=== PATIENT | female | born 1970 | race Caucasian/White ===

== ENCOUNTER → 2016-12-08 | Outpatient (CLI) | payer BC ==
[2016-12-08 13:01] LABS: CH 30.9; CHCM 33.8; HCT 42.2 % (34.0-46.0); HDW 2.32; HGB 13.9 gm/dL (11.4-16.0); MCH 30.2 pg (25.0-35.0); MCV 91.7 fL (80.0-100.0); Mean Platelet Volume 7.5; RBC 4.61 m/uL (3.80-5.40); RDW 13.5 % (11.5-15.5); WBC 6.8 k/uL (3.8-10.6)
[2016-12-08 13:28] LABS: Rheumatoid Factor, Qnt <9 IU/mL (<12)
[2016-12-08 13:29] LABS: C Reactive Protein <5.0 mg/L (<10.0)
[2016-12-08 14:24] LABS: Erythrocyte Sedimentation Rate 11 mm/hr (0-20)
[2016-12-08 22:39] LABS: ANA w/Reflex to Titer POSITIVE (NEGATIVE)
[2016-12-09 08:45] LABS: HLA B27 NEGATIVE; HLA B27 Comment SEEBELOW
[2016-12-12 10:16] LABS: Lyme IgG/IgM 0.7 Index; Lyme IgG/IgM Interp NEGATIVE (NEGATIVE)
== END | disposition home or self-care (01) ==
LOC: LABWHC1 12:10
PROVIDERS: ATTEND Orthopaedic Surgery
DX: M19.072 Primary osteoarthritis, left ankle and foot (principal); M06.9 Rheumatoid arthritis, unspecified; Q66.7 Congenital pes cavus; G57.62 Lesion of plantar nerve, left lower limb
CPT/HCPCS: 36415; 84443; 85027; 85652; 86038; 86039; 86060; 86140; 86431; 86618; 86812

== ENCOUNTER → 2016-12-19 | Outpatient (CLI) | payer BC ==
--- NOTE | 2016-12-20 19:16 | HP ---
CHIEF COMPLAINT: The patient is here for her routine gynecologic exam and mammogram. HPI: This is a 46-year-old G4, P3-0-1-3 with an LMP of 2007. She is status post endometrial ablation and has had amenorrhea since then. She does have a history of dyspareunia. She states this has improved since I last saw her. She still uses Estrace vaginal cream periodically and this has been helpful. She states the discomfort with intercourse is improved when she can relax the pelvic floor muscles. She has experienced some discomfort with intercourse and occasional pelvic pains which seem to be cyclic. It seems to occur every month or so. She is not having periods so she does not know if it is related to her cycling hormones. PAST MEDICAL HISTORY: Hypothyroidism, elevated cholesterol and back and neck problems. MEDICATIONS: 1. Levothyroxine 75 mcg daily. 2. Valtrex generic 500 mg daily but she states she does not always use this. 3. Simvastatin 10 mg daily. 4. Estrace vaginal cream 1-2 gm twice weekly p.r.n. ALLERGIES: BIAXIN which caused a rash. 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 REVIEW OF SYSTEMS: She has gained about 3 pounds over the last year. She denies respiratory, cardiac or GI problems. SOCIAL HISTORY: She denies tobacco and drug use and has about 3 drinks per day during the summer but she tends to only drink alcohol on the weekends during the school year. 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 PHYSICAL EXAM: Blood pressure 120/78, height 5'0", weight 144 pounds, temperature 98.6, pulse 85. This is a well-developed, well-nourished white female who is alert and oriented x3, in no acute distress. HEENT: Within normal limits. NECK: Supple without mass or thyromegaly. CHEST AND LUNGS: Clear to auscultation. HEART: Regular rate and rhythm. BREASTS: Without mass or discharge. AXILLARY: Negative for adenopathy. BACK: Negative for CVA tenderness. ABDOMEN: Soft, nontender without palpable masses. PELVIC: Normal external genitalia. Cervix and vagina appear normal. There is no unusual discharge. There is no cervical motion tenderness. There is no evidence of prolapse. The uterus is mid position, nongravatized and nontender. There are no palpable adnexal masses or tenderness. With palpation to the posterior vagina, there is mild tenderness approximately 6 cm inside of the introitus on the right side. This is consistent with her previous exams. There is no discreet palpable mass. RECTOVAGINAL: Negative for mass or tenderness and is negative for occult blood. EXTREMITIES: Nontender. IMPRESSION: 1. 46-year-old female with history of dyspareunia and there is mild vaginal tenderness at the posterior aspect on the right side of the vagina. Differential diagnoses will include endometriosis, myofascial pelvic pain syndrome, possible ovarian cyst pains and possible levator ani spasms. Her symptoms seem somewhat improved from her previous visits. 2. History of genital herpes with no recent flare-ups, on suppressive therapy. PLAN: 1. Pap smear was deferred since she had a normal one last year. 2. Self breast examination was discussed. 3. A mammogram will be done today. 4. The patient would like prescriptions for her Valtrex and Estrace cream and these were given to the patient. 5. We discussed various options regarding her dyspareunia. If it is bothersome for her, I have recommended laparoscopic examination. She understands that she would need a referral for this. She will consider this and let me know if she would like to proceed with this. 6. We have also discussed possible physical therapy for possible myofascial pelvic pain syndrome or levator ani spasms. At this time she feels that her symptoms have improved enough where she would not want to do this at this time. 7. She will return in one year. SYED
--- NOTE | 2016-12-21 10:36 | MM ---
Reason for exam: screening (asymptomatic). Last mammogram was performed 1 year and 2 months ago. History: Benign right mammotome panel of the right breast, January 06, 2011. Benign right mammotome panel of the right breast, January 06, 2011. Took hormonal contraceptives for 4 years. Physical Findings: A clinical breast exam by your physician is recommended on an annual basis and results should be correlated with mammographic findings. MG 3D Screening Mammo W/Cad Bilateral CC and MLO view(s) were taken. XCCL view(s) were taken of the right breast. Prior study comparison: October 19, 2015, bilateral MG 3d screening mammo w/cad. July 15, 2014, bilateral MG diagnostic mammo w CAD ZOILA. June 25, 2013, CAD bilateral diagnostic mammogram. The breast tissue is heterogeneously dense. This may lower the sensitivity of mammography. Finding: There are typically benign calcifications in the lower inner quadrant of the right breast 3cm from nipple. New finding since October 19, 2015, July 15, 2014, and June 25, 2013. ASSESSMENT: Incomplete: need additional imaging evaluation, BI-RAD 0 RECOMMENDATION: Special view mammogram of the right breast. If lesion persists on supplemental views, image directed ultrasound is recommended. [facility] will attempt to contact patient to return for supplemental views and ultrasound if indicated.
== END | disposition home or self-care (01) ==
LOC: WWCWWP 08:40
PROVIDERS: ATTEND Obstetrics & Gynecology
DX: Z12.31 Encounter for screening mammogram for malignant neoplasm of breast (principal)
CPT/HCPCS: 77063; G0202

== ENCOUNTER → 2016-12-25 | Outpatient (CLI) | payer BC ==
--- NOTE | 2016-12-25 10:01 | MM ---
Reason for exam: additional evaluation requested from abnormal screening. Last mammogram was performed less than 1 month ago. History: Benign right mammotome panel of the right breast, January 06, 2011. Benign right mammotome panel of the right breast, January 06, 2011. Took hormonal contraceptives for 4 years. Physical Findings: Nurse did not find any significant physical abnormalities on exam. MG 3D Work Up W/Cad RT CC, MLO, ML, CC with magnification, and ML with magnification view(s) were taken of the right breast. Prior study comparison: December 19, 2016, bilateral MG 3d screening mammo w/cad. October 19, 2015, bilateral MG 3d screening mammo w/cad. The breast tissue is heterogeneously dense. This may lower the sensitivity of mammography. There is a 3.4mm group of calcifications in lower inner quadrant of right breast, some appear o be present of the exam on 12/29/10 and these are punctate and round and probably benign. These results were verbally communicated with the patient and result sheet given to the patient on 12/25/16. ASSESSMENT: Probably benign, BI-RAD 3 RECOMMENDATION: Follow-up diagnostic mammogram of the right breast in 6 months.
== END | disposition home or self-care (01) ==
LOC: RADMAMWWP 08:58
PROVIDERS: ATTEND Obstetrics & Gynecology
DX: R92.8 Other abnormal and inconclusive findings on diagnostic imaging of breast (principal)
CPT/HCPCS: G0206; G0279

== ENCOUNTER 2017-11-23 12:33 | Emergency (ER) | payer BC ==
[2017-11-23] MEDS ORDERED: SODIUM CHLORIDE 0.9% 1,000 ML IV STA (13:18)
--- NOTE | 2017-11-23 13:21 | ED ---
General Adult HPI - General Chief complaint: Abdominal Pain Stated complaint: Abd pain Time Seen by Provider: 11/23/17 13:05 Source: patient, RN notes reviewed Mode of arrival: ambulatory Limitations: no limitations - History of Present Illness Initial comments: Patient is a 47-year-old female presented to the emergency room today with a chief complaint of lower abdominal pain over the last 3 weeks. Patient states that [facility] and had blood work obtained. She states she was told everything looked well. She states she still expresses some pain in the lower abdomen. She denies any vaginal bleeding or discharge. States at times she's felt nauseated. States appetites been well. Patient states she was talking to her family physician who advised her that she should have a pelvic ultrasound shows she came here to the emergency room today because pain was increased. Patient denies any recent fever, chills, shortness of breath, chest pain, back pain, vomiting, numbness or tingling, dysuria or hematuria, constipation or diarrhea, headaches or visual changes, or any other complaints. - Related Data Home Medications Medication Instructions Recorded Confirmed Ibuprofen [Motrin] 600 mg PO Q8HR PRN 11/23/17 11/23/17 Levothyroxine Sodium [Synthroid] 75 mcg PO DAILY 11/23/17 11/23/17 Simvastatin [Zocor] 10 mg PO HS 11/23/17 11/23/17 Previous Rx's Medication Instructions Recorded Ibuprofen [Motrin] 600 mg PO Q6HR PRN #40 day 11/23/17 Allergies Allergy/AdvReac Type Severity Reaction Status Date / Time amoxicillin [Amoxicillin] Allergy Rash/Hives Verified 11/23/17 13:26 clarithromycin [From Biaxin] Allergy Rash/Hives Verified 11/23/17 13:26 Review of Systems ROS Statement: Those systems with pertinent positive or pertinent negative responses have been documented in the HPI. ROS Other: All systems not noted in ROS Statement are negative. Past Medical History Past Medical History: Hyperlipidemia, Thyroid Disorder History of Any Multi-Drug Resistant Organisms: None Reported Past Surgical History: Section Past Psychological History: No Psychological Hx Reported Smoking Status: Never smoker Past Alcohol Use History: Occasional Past Drug Use History: None Reported General Exam - General Exam Comments Initial Comments: General: The patient is awake and alert, in no distress, and does not appear acutely ill. Eye: Pupils are equal, round and reactive to light, extra-ocular movements are intact. No nystagmus. There is normal conjunctiva bilaterally. No signs of icterus. Ears, nose, mouth and throat: There are moist mucous membranes and no oral lesions. Neck: The neck is supple, there is no tenderness or JVD. Cardiovascular: There is a regular rate and rhythm. No murmur, rub or gallop is appreciated. Respiratory: Lungs are clear to auscultation, respirations are non-labored, breath sounds are equal. No wheezes, stridor, rales, or rhonchi. Gastrointestinal: Episodes on palpation. Mild tenderness suprapubic. No rebound, guarding or CVA tenderness. Musculoskeletal: Normal ROM, no tenderness. Strength 5/5. Sensation intact. Pulses equal bilaterally 2+. Neurological: A&O x 3. CN II-XII intact, There are no obvious motor or sensory deficits. Coordination appears grossly intact. Speech is normal. Skin: Skin is warm and dry and no rashes or lesions are noted. Psychiatric: Cooperative, appropriate mood & affect, normal judgment. Limitations: no limitations Course Vital Signs 11/23/17 13:01 Temperature 98.6 F Pulse Rate 82 Respiratory 18 Rate Blood Pressure 132/77 O2 Sat by Pulse 100 Oximetry Medical Decision Making - Medical Decision Making Patient reexamined at this time shows no signs of distress. She is resting comfortable. Patient's labs been reviewed. Patient's ultrasound does show leiomyomas. Largest sugars 4.5 centimeters. Patient does have follow-up with her [facility] PULLER and also GI. She is advised to keep these follow-up appointments return to emergency room symptoms increase or worsen or for any other concerns. - Lab Data Result diagrams: 11/23/17 13:25 11/23/17 13:25 Lab Results 11/23/17 11/23/17 11/23/17 Range/Units 13:25 13:25 13:39 WBC 8.3 (3.8-10.6) k/uL RBC 4.87 (3.80-5.40) m/uL Hgb 14.1 (11.4-16.0) gm/dL Hct 43.6 (34.0-46.0) % MCV 89.5 (80.0-100.0) fL MCH 28.9 (25.0-35.0) pg MCHC 32.3 (31.0-37.0) g/dL RDW 12.6 (11.5-15.5) % Plt Count 307 (150-450) k/uL Neutrophils % 66 % Lymphocytes % 24 % Monocytes % 5 % Eosinophils % 3 % Basophils % 1 % Neutrophils # 5.4 (1.3-7.7) k/uL Lymphocytes # 2.0 (1.0-4.8) k/uL Monocytes # 0.4 (0-1.0) k/uL Eosinophils # 0.3 (0-0.7) k/uL Basophils # 0.0 (0-0.2) k/uL Sodium 139 (137-145) mmol/L Potassium 4.3 (3.5-5.1) mmol/L Chloride 106 (98-107) mmol/L Carbon Dioxide 26 (22-30) mmol/L Anion Gap 7 mmol/L BUN 19 H (7-17) mg/dL Creatinine 0.70 (0.52-1.04) mg/dL Est GFR (CKD-EPI)AfAm >90 (>60 ml/min/1.73 sqM) Est GFR (CKD-EPI)NonAf >90 (>60 ml/min/1.73 sqM) Glucose 93 (74-99) mg/dL Calcium 9.5 (8.4-10.2) mg/dL Total Bilirubin 0.7 (0.2-1.3) mg/dL AST 24 (14-36) U/L ALT 31 (9-52) U/L Alkaline Phosphatase 43 (38-126) U/L Total Protein 6.9 (6.3-8.2) g/dL Albumin 4.1 (3.5-5.0) g/dL Amylase 69 (30-110) U/L Lipase 66 (23-300) U/L Urine Color Urine Appearance (Clear) Urine pH (5.0-8.0) Ur Specific [place] (1.001-1.035) Urine Protein (Negative) Urine Glucose (UA) (Negative) Urine Ketones (Negative) Urine Blood (Negative) Urine Nitrite (Negative) Urine Bilirubin (Negative) Urine Urobilinogen (<2.0) mg/dL Ur Leukocyte Esterase (Negative) Urine HCG, Qual Not Detected (Not Detectd) 07/27/18 Range/Units 13:39 WBC (3.8-10.6) k/uL RBC (3.80-5.40) m/uL Hgb (11.4-16.0) gm/dL Hct (34.0-46.0) % MCV (80.0-100.0) fL MCH (25.0-35.0) pg MCHC (31.0-37.0) g/dL RDW (11.5-15.5) % Plt Count (150-450) k/uL Neutrophils % % Lymphocytes % % Monocytes % % Eosinophils % % Basophils % % Neutrophils # (1.3-7.7) k/uL Lymphocytes # (1.0-4.8) k/uL Monocytes # (0-1.0) k/uL Eosinophils # (0-0.7) k/uL Basophils # (0-0.2) k/uL Sodium (137-145) mmol/L Potassium (3.5-5.1) mmol/L Chloride (98-107) mmol/L Carbon Dioxide (22-30) mmol/L Anion Gap mmol/L BUN (7-17) mg/dL Creatinine (0.52-1.04) mg/dL Est GFR (CKD-EPI)AfAm (>60 ml/min/1.73 sqM) Est GFR (CKD-EPI)NonAf (>60 ml/min/1.73 sqM) Glucose (74-99) mg/dL Calcium (8.4-10.2) mg/dL Total Bilirubin (0.2-1.3) mg/dL AST (14-36) U/L ALT (9-52) U/L Alkaline Phosphatase (38-126) U/L Total Protein (6.3-8.2) g/dL Albumin (3.5-5.0) g/dL Amylase (30-110) U/L Lipase (23-300) U/L Urine Color Light Yellow Urine Appearance Clear (Clear) Urine pH 5.0 (5.0-8.0) Ur Specific [place] 1.009 (1.001-1.035) Urine Protein Negative (Negative) Urine Glucose (UA) Negative (Negative) Urine Ketones Negative (Negative) Urine Blood Negative (Negative) Urine Nitrite Negative (Negative) Urine Bilirubin Negative (Negative) Urine Urobilinogen <2.0 (<2.0) mg/dL Ur Leukocyte Esterase Negative (Negative) Urine HCG, Qual (Not Detectd) Disposition Clinical Impression: Leiomyoma, Abdominal pain Disposition: HOME SELF-CARE Condition: Good Instructions: Abdominal Pain (ED) Additional Instructions: Please follow-up with [facility]/GI/family doctor in the next 2-5 days. Please return to emergency room if the symptoms increase or worsen or for any other concerns. Prescriptions: Ibuprofen [Motrin] 600 mg PO Q6HR PRN #40 day PRN Reason: Pain Is patient prescribed a controlled substance at d/c from ED?: No Referrals: Jas Villanueva MD [Primary Care Provider] - 1-2 days Elham Esteves MD [STAFF PHYSICIAN] - 1-2 days Blaire Hilliard DO [Doctor of Osteopathic Medicine] - 1-2 days Time of Disposition: 15:27
[2017-11-23 13:42] LABS: Basophils % (A) 1 %; Eosinophils # (A) 0.3 k/uL (0-0.7); Eosinophils % (A) 3 %; HCT 43.6 % (34.0-46.0); HGB 14.1 gm/dL (11.4-16.0); Lymphocytes % (A) 24 %; MCH 28.9 pg (25.0-35.0); MCHC 32.3 g/dL (31.0-37.0); MCV 89.5 fL (80.0-100.0); Mean Platelet Volume 6.6; Monocytes # (A) 0.4 k/uL (0-1.0); Monocytes % (A) 5 %; Neutrophils # (A) 5.4 k/uL (1.3-7.7); Neutrophils % (A) 66 %; Platelet Count 307 k/uL (150-450); RBC 4.87 m/uL (3.80-5.40); RDW 12.6 % (11.5-15.5); WBC 8.3 k/uL (3.8-10.6)
[2017-11-23 13:52] LABS: ALT 31 U/L (9-52); AST 24 U/L (14-36); Albumin 4.1 g/dL (3.5-5.0); Alkaline Phosphatase 43 U/L (38-126); Amylase 69 U/L (30-110); Anion Gap 7 mmol/L; Blood Urea Nitrogen 19 mg/dL (7-17); Calcium 9.5 mg/dL (8.4-10.2); Carbon Dioxide 26 mmol/L (22-30); Chloride 106 mmol/L (98-107); Glucose 93 mg/dL (74-99); Lipase 66 U/L (23-300); Potassium 4.3 mmol/L (3.5-5.1); Sodium 139 mmol/L (137-145); Total Bilirubin 0.7 mg/dL (0.2-1.3); Total Protein 6.9 g/dL (6.3-8.2)
[2017-11-23 14:11] LABS: Appearance,Urine Clear (Clear); Bilirubin,Urine Negative (Negative); Blood,Urine Negative (Negative); Color,Urine Light Yellow; Glucose,Urine (UA) Negative (Negative); Ketones,Urine Negative (Negative); Leukocyte Esterase,Urine Negative (Negative); Nitrite,Urine Negative (Negative); Protein,Urine Negative (Negative); Specific Gravity,Urine 1.009 (1.001-1.035); Urobilinogen,Urine <2.0 mg/dL (<2.0)
--- NOTE | 2017-11-23 14:34 | US ---
EXAMINATION TYPE: US transvaginal DATE OF EXAM: 11/23/2017 COMPARISON: US CLINICAL HISTORY: pain. Pt states lower ABD pain TECHNIQUE: Transvaginal (TV). Date of LMP: 10 yrs ago, h/o ablation EXAM MEASUREMENTS: Uterus: 12.7 x 8.1 x 8.2 cm Endometrial Stripe: 0.5 cm Right Ovary: 3.4 x 2.4 x 2.2 cm Left Ovary: 2.6 x 1.8 x 3.2 cm 1. Uterus: Anteverted Enlarged, heterogeneous with probable fibroid posterior= 3.1 x 3.7 x 4.6 cm, complex area mid UT= 2.3 x 1.5 x 1.6 cm 2. Endometrium: fluid within canal 3. Right Ovary: Dominant follicle= 2.0x 1.7 x 1.5 cm 4. Left Ovary: wnl Spectral, color and waveform doppler imaging shows good arterial and venous flow within the ovaries ; there is no evidence for ovarian torsion. 5. Bilateral Adnexa: wnl 6. Posterior cul-de-sac: Scant amount of free fluid IMPRESSION: 1. Enlarged heterogenous uterus is seen on the prior of 2014. There are multiple uterine leiomyomas, the largest measuring 4.6 cm. Additionally there is fluid within the endometrial canal, abnormal in t his postablation patient with prior last menses 10 years ago. Direct visualization or sonohysterogram are recommended for further evaluation to evaluate for underlying polyp or endometrial mass. 2. No current evidence of ovarian torsion at the time of examination.
[2017-11-23 15:53] VITALS: BP 129/76; PULSE 66; RESP 16; TEMP 98
== END 2017-11-23 15:56 | disposition home or self-care (01) ==
LOC: EC 12:33
DX: D25.9 Leiomyoma of uterus, unspecified (principal); E78.5 Hyperlipidemia, unspecified; E07.9 Disorder of thyroid, unspecified; Z79.899 Other long term (current) drug therapy; Z88.0 Allergy status to penicillin; Z88.1 Allergy status to other antibiotic agents
CPT/HCPCS: 36415; 76830; 80053; 81003; 81025; 82150; 83690; 85025; 93975; 96360; 96361; 99284

== ENCOUNTER → 2018-01-10 | Outpatient (CLI) | payer BC ==
--- NOTE | 2018-01-11 07:47 | MM ---
Reason for exam: clinical finding. Last mammogram was performed 6 months ago. History: Benign right mammotome panel of the right breast, January 06, 2011. Benign right mammotome panel of the right breast, January 06, 2011. Took hormonal contraceptives for 4 years. Physical Findings: Nurse Summary: 1cm nodule in the right breast at 3 o'clock (nurse mj). MG 3D Diag Mammo W/Cad ZOILA Bilateral CC and MLO view(s) were taken. Prior study comparison: July 11, 2017, mammogram, performed at [facility]. December 25, 2016, right breast MG 3d work up w/cad RT. The breast tissue is heterogeneously dense. This may lower the sensitivity of mammography. Finding: There are indeterminate grouped/clustered calcifications in the lower inner quadrant of the right breast. Previous mammotome biopsy in the right breast x 3. ASSESSMENT: Incomplete: need additional imaging evaluation, BI-RAD 0 RECOMMENDATION: Ultrasound of the right breast.
--- NOTE | 2018-01-11 07:48 | USB ---
Reason for exam: additional evaluation requested from abnormal screening. History: Benign right mammotome panel of the right breast, January 06, 2011. Benign right mammotome panel of the right breast, January 06, 2011. Took hormonal contraceptives for 4 years. US Breast RT Technologist: Carola Monzon, RT (R)(M) Right complete breast ultrasound includes all four quadrants, the retroareolar region and axilla. Finding demonstrates no cystic or solid lesion seen. These results were verbally communicated with the patient and result sheet given to the patient on 01/10/18. ASSESSMENT: Suspicious, BI-RAD 4 RECOMMENDATION: Stereotactic core biopsy of the right breast. Called Dr. Hilliard with mammographic findings and has scheduled an appointment for the patient for 02/14/18 at 10:[address] Gibson. Biposy scheduled for 01/25/18 at 10:20. PRELIMINARY REPORT CALLED AND FAXED TO DR. GIBSON ON 01/11/18.
== END | disposition home or self-care (01) ==
LOC: RADMAMWWP 14:54
PROVIDERS: ATTEND Obstetrics & Gynecology Obstetrics
DX: N63.10 Unspecified lump in the right breast, unspecified quadrant (principal); R92.8 Other abnormal and inconclusive findings on diagnostic imaging of breast
CPT/HCPCS: 77062; 77066

== ENCOUNTER → 2018-01-18 | Day surgery (SDC) | payer BC ==
[2018-01-16 15:07] VITALS: BMI 26.4
[~2018-01-18] MED LIST: LIDOCAINE 1% 20 ML VIAL (10MG/ML) FOR IV START INTRADERMA ONE; LIDOCAINE 1% INJ 10MG/ML (20 ML MDV) ONE; PROPOFOL 10 MG/ML 20 ML VIAL IV ONE
[2018-01-18 07:40] VITALS: RESP 16; TEMP 98.6
[2018-01-18] MEDS: LACTATED RINGERS 1,000 ML IV SCH ×2 (07:45→08:03)
--- NOTE | 2018-01-18 08:25 | P.PCN ---
Date of Procedure: 01/18/18 Procedure(s) Performed: BRIEF HISTORY: Patient is a 47-year-old pleasant white female, scheduled for an elective colonoscopy as a part of evaluation of lower abdominal pain and change in bowel habits for the last several months duration. PROCEDURE PERFORMED: Colonoscopy and snare polypectomy. PREOPERATIVE DIAGNOSIS: Lower abdominal pain and change in bowel habits of several months duration. IV sedation per Anesthesia. PROCEDURE: After informed consent was obtained, the patient, was brought into the endoscopy unit. IV sedation was administered by Anesthesia under continuous monitoring. Digital rectal examination was normal. Initially the Olympus CF- 160 flexible video colonoscope was then inserted in the rectum, gradually advanced into the cecum without any difficulty. Careful examination was performed as the scope was gradually being withdrawn. Ileocecal valve and the appendiceal orifice were visualized and appeared normal. Despite multiple times I was not able to intubate the terminal ileum. Prep was excellent. Mucosa of the cecum, ascending colon, transverse colon, descending colon, sigmoid colon, and rectum appeared normal. Retroflexion was performed in the rectum and no lesions were seen. The patient tolerated the procedure well. IMPRESSION: 5 mm sessile mid rectal polyp status post polypectomy Rest of the colon appeared normal RECOMMENDATIONS: Findings of this examination were discussed with the patient as well as a family. She was advised to follow with the biopsy results. If the biopsy shows adenoma she can have a repeat colonoscopy in 5 years.
[2018-01-18 08:32] VITALS: BP 108/72; PULSE 62
== END | disposition home or self-care (01) ==
LOC: ORWHC2ENDO 07:09
PROVIDERS: ATTEND Internal Medicine Gastroenterology
DX: K62.1 Rectal polyp (principal); E78.5 Hyperlipidemia, unspecified; R19.4 Change in bowel habit; Z88.0 Allergy status to penicillin; Z88.1 Allergy status to other antibiotic agents; Z79.899 Other long term (current) drug therapy
CPT/HCPCS: 81025; 88305; 45385; J2001; J2704

== ENCOUNTER → 2018-01-22 | Outpatient (CLI) | payer BC ==
[2018-01-22 08:48] LABS: Basophils # (A) 0.1 k/uL (0-0.2); Basophils % (A) 1 %; Eosinophils # (A) 0.3 k/uL (0-0.7); Eosinophils % (A) 5 %; HCT 40.5 % (34.0-46.0); HGB 13.5 gm/dL (11.4-16.0); Lymphocytes # (A) 1.6 k/uL (1.0-4.8); Lymphocytes % (A) 25 %; MCH 29.9 pg (25.0-35.0); MCHC 33.4 g/dL (31.0-37.0); MCV 89.3 fL (80.0-100.0); Mean Platelet Volume 6.8; Monocytes # (A) 0.3 k/uL (0-1.0); Monocytes % (A) 5 %; Neutrophils # (A) 4.2 k/uL (1.3-7.7); Neutrophils % (A) 64 %; Platelet Count 295 k/uL (150-450); RBC 4.54 m/uL (3.80-5.40); RDW 12.5 % (11.5-15.5); WBC 6.6 k/uL (3.8-10.6)
[2018-01-22 08:58] LABS: Anion Gap 10 mmol/L; Blood Urea Nitrogen 16 mg/dL (7-17); Carbon Dioxide 23 mmol/L (22-30); Chloride 107 mmol/L (98-107); Glucose 92 mg/dL (74-99); Potassium 4.3 mmol/L (3.5-5.1); Sodium 140 mmol/L (137-145)
== END | disposition home or self-care (01) ==
LOC: LABPAT 07:33
PROVIDERS: ATTEND Obstetrics & Gynecology Obstetrics
DX: Z01.812 Encounter for preprocedural laboratory examination (principal); D25.9 Leiomyoma of uterus, unspecified; N80.0 Endometriosis of uterus
CPT/HCPCS: 36415; 80051; 82565; 82947; 84520; 85025; 87086

== ENCOUNTER → 2018-01-23 | Outpatient (CLI) | payer BC | LOC: LABWHC1 11:15 | PROVIDERS: ATTEND Obstetrics & Gynecology Obstetrics | DX: Z01.818 Encounter for other preprocedural examination (principal); D25.9 Leiomyoma of uterus, unspecified | CPT/HCPCS: 86850; 86900; 86901 ==

== ENCOUNTER → 2018-01-25 | Day surgery (SDC) | payer BC ==
[2018-01-25 10:13] VITALS: RESP 16
[2018-01-25 12:34] VITALS: BP 126/84; PULSE 73; TEMP 98.1
--- NOTE | 2018-01-27 12:29 | MM ---
EXAMINATION TYPE: MG stereo VAD BX RT DATE OF EXAM: 01/25/2018 COMPARISON: 01/10/2018 mammogram CLINICAL HISTORY: Abnormal calcifications TECHNIQUE: Stereotactic guided core biopsy of right breast. FINDINGS: The procedure of stereotactic guided core biopsy was explained to the patient and her . Benefits, alternatives, and risks were discussed. An informed consent was then obtained. Patient was placed on the stereotactic core table. Calcifications are identified. Timeout was performed. The shortness pathway for biopsy was chosen. Shortness pathway was lateral approach. Targeting was provided by radiology. The procedure was performed by radiology. A vacuum assisted biopsy gun was used to obtain multiple core samples. Specimen: Multiple Targeted calcifications are identified in specimen mammogram. The patient tolerated the procedure very well without any immediate complication. Good hemostasis was obtained with direct pressure. The patient was kept in the radiology department for short stay after the procedure. Postprocedure mammogram ordered by the physician was obtained. Procedure mammogram: Core marker is within the breast at the targeted calcifications site. Calcifications appear largely resected. Patient was discharged home in stable condition. IMPRESSION: 1. Successful stereotactic core biopsy right breast calcifications. Recommendations: 1. Recommendations are pending pathology results. Pathology Results: Benign BREAST, RIGHT, STEREOTACTIC CORE BIOPSY: Fibrocystic changes including collagenous spherulosis with calcifications, sclerosing adenosis, fibrosis, cysts and columnar cell change. Recommendation Follow up mammogram of the right breast in 6 months. SYED
== END ==
LOC: RADMAMWWP 09:08
PROVIDERS: ATTEND Surgery
DX: N60.21 Fibroadenosis of right breast (principal); N60.31 Fibrosclerosis of right breast; R92.1 Mammographic calcification found on diagnostic imaging of breast; Z88.1 Allergy status to other antibiotic agents; Z88.0 Allergy status to penicillin
CPT/HCPCS: 88305; 19081; A4648; J2001

== ENCOUNTER 2018-01-29 05:50 | Day surgery (SDC) | payer BC ==
[2018-01-16 15:40] VITALS: BMI 26.4
--- NOTE | 2018-01-25 12:15 | HP ---
HISTORY AND PHYSICAL HISTORY OF PRESENT ILLNESS: This is a very pleasant 47-year-old female, 4, para 3-0-1-3 that presents with complaints of pelvic and abdominal pain. Patient states the pain will come in waves at times. She denies menstrual bleeding as she had an endometrial ablation done years ago. The patient has been seen in the emergency department a few times with complaints of severe pelvic and abdominal pain. Pelvic ultrasound revealing an enlarged 12 cm uterus with normal ovaries and a prior history of endometriosis is noted from the patient. She does have 3 prior C-sections in addition. PAST MEDICAL HISTORY: Significant for hypothyroidism. PAST SURGICAL HISTORY: 1. Three C sections as stated above. 2. Hysteroscopy and NovaSure ablation. 3. Tubal ligation. MEDICATIONS: 1. She is on levothyroxine 75 mcg. 2. Simvastatin daily. ALLERGIES: Allergic to AMOXICILLIN and BIAXIN, both are hives as a reaction, FAMILY MEDICAL HISTORY: Noncontributory. 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 Her menstrual cycles are absent secondary to history of endometrial ablation. SOCIAL HISTORY: She is an nonsmoker. She notes occasional alcohol abuse. Denies drug use. 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 REVIEW OF SYSTEMS: She denies body aches and night sweats. She denies nausea, vomiting, diarrhea, or constipation, but does have some change in her stools of late. GENITOURINARY: She denies urgency, frequency, and vaginal bleeding. INITIAL PHYSICAL EXAM: This is a well-nourished, well-developed, alert female in no acute distress. Head is noted to be normocephalic and atraumatic. Her neck is without masses or tenderness and appears normal. Her abdomen is soft with normal bowel sounds. Genitourinary, the external genitalia is noted to be normal for age. No discharge is noted. The vagina is normal. Vaginal mucosa well rugated and pink in nature. The cervix is healthy with no abnormalities noted. The uterus is noted to be enlarged with reduced mobility, adnexa were not able to be palpated secondary to uterine size. Neurologic, she is grossly oriented to person, place, and time. Judgment is normal and her mood is appropriate. ASSESSMENT: 1. Enlarged fibroid uterus. 2. Endometriosis. PLAN: Robotic assisted vaginal hysterectomy, unilateral salpingo-oophorectomy, diagnostic cystoscopy. Surgery is reviewed with the patient including but not limited to infection, bleeding, damage to bladder, given her 3 prior C-sections, multiple questions were answered on this, ureteric injury given the enlarged nature of the uterus. We did discuss the possibility of anatomic abnormalities, damage to other pelvic organs. Given her history of endometriosis, possible scarring, and once again the enlarged nature of the uterus, many things can be distorted within the pelvis and anatomical injury as possible. Patient stated understanding. Multiple questions were answered and patient wished to proceed. MMODL / IJN: [id number] /
[~2018-01-29 05:50] MED LIST changes: +DEXAMETHASONE SOD PHOSPHATE 10 MG/ML 1 ML VIAL IV ONE; +HYDROmorphone 0.5 MG/0.5 ML SYRINGE IVP PRN; -LIDOCAINE 1% 20 ML VIAL (10MG/ML) FOR IV START INTRADERMA ONE; -LIDOCAINE 1% INJ 10MG/ML (20 ML MDV) ONE; +MIDAZOLAM 2 MG/2 ML VIAL IV PRN; -PROPOFOL 10 MG/ML 20 ML VIAL IV ONE; +SCOPOLAMINE 1.5MG/72HR PATCH TRANSDERM ONE
[2018-01-29] MEDS ORDERED: ceFAZolin IN SWFI 2 GM/20 ML SYRINGE IVP ONE (06:00)
[2018-01-29] MEDS: LACTATED RINGERS 1,000 ML IV SCH ×3 (06:42→23:15)
[2018-01-29] MEDS: LIDOCAINE 1% 20 ML VIAL (10MG/ML) FOR IV START INTRADERMA PRN ×2 (06:43→06:44)
[2018-01-29] MEDS: ONDANSETRON 4 MG/2 ML VIAL IVP ONE ×2 (06:45→15:07)
[2018-01-29] MEDS ORDERED: GLYCOPYRROLATE 0.2 MG/ML 2 ML VIAL ONE (07:32)
[2018-01-29] MEDS ORDERED: NEOSTIGMINE 1 MG/ML 10 ML VIAL ONE (07:32)
[2018-01-29] MEDS ORDERED: PROPOFOL 10 MG/ML 20 ML VIAL IV ONE (07:32)
[2018-01-29] MEDS ORDERED: fentaNYL (PF) 50 MCG/ML 2 ML AMP ONE (07:32)
[2018-01-29] MEDS ORDERED: MIDAZOLAM 2 MG/2 ML VIAL ONE (07:32)
[2018-01-29] MEDS ORDERED: LIDOCAINE 1% INJ 10MG/ML (20 ML MDV) ONE (07:32)
[2018-01-29] MEDS ORDERED: ROCURONIUM BROMIDE 10 MG/ML 10 ML VIAL IV ONE (07:32)
[2018-01-29] MEDS ORDERED: SUCCINYLCHOLINE CHLORIDE 100 MG/5 ML SYR IV ONE (07:32)
[2018-01-29] MEDS ORDERED: HYDROmorphone (PF) 1 MG/ML ONE (07:32)
[2018-01-29] MEDS ORDERED: ROPIVACAINE 5 MG/ML 30 ML VIAL MISCELLANE ONE (08:03)
[2018-01-29] MEDS ORDERED: LACTATED RINGERS 1,000 ML IV ONE (10:02)
[2018-01-29] MEDS ORDERED: Acetaminophen-Codeine 300-30mg TAB PO PRN (10:21)
[2018-01-29] MEDS ORDERED: ACETAMINOPHEN IV (For NPO) 1,000 MG in EMPTY BAG 1 BAG IVPB ONE (10:21)
[2018-01-29] MEDS ORDERED: IBUPROFEN IV 800 MG in SODIUM CHLORIDE 0.9% 250 ML IV ONE (10:24)
--- NOTE | 2018-01-29 10:33 | P.OP ---
Date of Procedure: 01/29/18 Preoperative Diagnosis: Uterine fibroids, enlarged uterus, pelvic pain Postoperative Diagnosis: Same Procedure(s) Performed: Robotic-assisted vaginal hysterectomy, left salpingo-oophorectomy, diagnostic cystoscopy Anesthesia: AMY Surgeon: Blaire Hilliard Workforce Services Representative #1: Saige Storey Estimated Blood Loss (ml): 250 IV fluids (ml): 1,100 Urine output (ml): 200 Pathology: other (Uterus cervix, left fallopian tube and ovary) Condition: stable Disposition: PACU Indications for Procedure: Pelvic pain, uterine fibroids Operative Findings: Enlarged fibroid uterus, normal ovaries bilaterally, extensive bladder adhesions taken down bluntly/sharply with good visualization of bladder edge Description of Procedure: Patient was seen in the preoperative area and informed consent was obtained. Patient was counseled on the risks of surgery once again including but not limited to infection, bleeding, damage to bladder, bowel, ureteric, other pelvic structures patient stated understanding and wished to proceed. Patient was taken to the operating room where general anesthesia was obtained without difficulty by the anesthesia department. She was then prepped and draped in normal sterile fashion in the dorsal lithotomy position. De Leon catheter was then placed under sterile technique. A weighted speculum was placed in the posterior vaginal vault the anterior lip of the cervix was visualized and grasped with a single-tooth tenaculum. The endocervical canal was then dilated and a [employer] uterine manipulator was advanced into the endometrial cavity as a means to manipulate the uterus throughout the procedure. The cervical cap was placed snugly against the cervix the balloon was insufflated and all instruments removed from the patient's vaginal opening. Attention was then turned to the patient's abdomen where approximately 2 fingerbreadths above the umbilicus a small skin incision was made. This incision the Veress needle was placed. Once the Veress needle was deemed to be in the proper position with a drop in CO2 pressure with insufflation of CO2 gas CO2 insufflation was allowed to occur. Approximately 3 L of gas were used to obtain pneumoperitoneum. At this time the incision was elongated and a 4 mm trocar and sleeve is placed through the incision for the pneumoperitoneum. On inspection of the pelvis significant bladder adhesions were noted of the uterus was enlarged and freely mobile. Attention was then turned to the other port sites the second 8 mm ports and placed under direct visualization 10 cm lateral and 3 cm inferior to the midline port. In the left upper quadrant a 12 mm trocar and sleeve is placed under direct visualization. At this time the da Haile robot is docked in the usual fashion. The operative arms are now placed in the right upper arm the monopolar scissors and the left operative arm the bipolar forceps was placed. Attention was then turned to the patient's left utero-ovarian ligament the uterus was noted to be closely adherent to the left ovary therefore the decision was made to remove the left ovary with the uterus. The left infundibulopelvic ligament was visualized regular distally approximately and divided this continued through the broad and toward the round which was coagulated distally and proximally divided. The bladder flap was then created using sharp and blunt dissection. The ascending branch of the uterine artery was visualized regular diet and transected hemostasis was appreciated. Attention was then turned to the patient's right uterine ovarian ligament which was visualized coagulated distally and proximally and divided. This continued through the broad and toward the round which was visualized regular distally and proximally divided. The bladder flap from the right was then created bladder adhesions were noted in the midline these were then taken down sharply hemostasis was noted throughout. The De Leon catheter continued to drain clear yellow urine throughout the procedure. Ray-James was then introduced into the abdominal cavity and the bladder was then dissected further away from the operating field. Ray-James was then removed. The descending branch of the uterine artery from the right was then coagulated distally and proximal plane divided. At this point the only remaining attachment was the vaginal attachment therefore colpotomy incision was made in a circumferential fashion and the uterus was transected into 3 separate pieces and delivered through the vaginal opening. The pelvis then copiously irrigated and the vaginal cuff was then closed with [id number] sutures of 0 Vicryl. Hemostasis was noted. FloSeal was placed across the cuff and the bladder flap. All instrument were then removed from the patient's abdomen. Attention was then turned to the patient's De Leon catheter which was removed without difficulty. Once again clear urine was noted in the De Leon catheter tubing. The cystoscope was opened placed in the urethra toward the bladder bladder bubble was noted both ureteral orifices were noted be spilling clear yellow urine. The cystoscope was removed. The De Leon catheter was then replaced. Attention was then turned to the patient's abdomen where the skin incisions were closed with 4-0 Vicryl in a subcuticular fashion. Steri-Strips and sterile dressings were applied as needed. All counts were correct 2 patient tolerated procedure well and was taken the recovery room awake and in stable condition.
[2018-01-29] MEDS: MEPERIDINE 50 MG/ML SYRINGE IVP ONE ×2 (10:50→10:55)
[2018-01-29] MEDS ORDERED: ACETAMINOPHEN IV (For NPO) 1,000 MG/100 ML VIAL IVPB ONE (11:02)
[2018-01-29] MEDS: Acetaminophen-Codeine 300-30mg TAB PO PRN ×2 (18:00→23:15)
[2018-01-29] MEDS: IBUPROFEN 600 MG TAB PO PRN (20:42)
[2018-01-29] MEDS ORDERED: ATORVASTATIN 10 MG TAB PO SCH (21:00)
[2018-01-30] MEDS: IBUPROFEN 600 MG TAB PO PRN ×2 (02:30→08:41)
[2018-01-30] MEDS: Acetaminophen-Codeine 300-30mg TAB PO PRN ×2 (06:13→12:04)
[2018-01-30] MEDS ORDERED: LEVOTHYROXINE 75 MCG TAB PO SCH (06:30)
[2018-01-30 08:02] LABS: Basophils % (A) 0 %; Eosinophils # (A) 0.1 k/uL (0-0.7); Eosinophils % (A) 2 %; HCT 33.1 % (34.0-46.0); HGB 10.9 gm/dL (11.4-16.0); Lymphocytes # (A) 1.9 k/uL (1.0-4.8); Lymphocytes % (A) 32 %; MCH 29.7 pg (25.0-35.0); MCV 90.2 fL (80.0-100.0); Mean Platelet Volume 6.8; Monocytes # (A) 0.2 k/uL (0-1.0); Monocytes % (A) 4 %; Neutrophils # (A) 3.7 k/uL (1.3-7.7); Neutrophils % (A) 61 %; Platelet Count 210 k/uL (150-450); RBC 3.67 m/uL (3.80-5.40); RDW 12.6 % (11.5-15.5); WBC 6.1 k/uL (3.8-10.6)
[2018-01-30 09:24] VITALS: RESP 20
[2018-01-30 12:25] VITALS: BP 107/68; PULSE 70; TEMP 98.1
--- NOTE | 2018-01-30 13:22 | P.DS ---
Providers Date of admission: 01/29/2018 Expected date of discharge: 01/30/18 Attending physician: Blaire Hilliard Primary care physician: Blaire Hilliard - Discharge Diagnosis(es) (1) Fibroid, uterine Current Visit: Yes Status: Acute (2) Enlarged uterus Current Visit: Yes Status: Acute (3) Pelvic pain Current Visit: Yes Status: Acute Hospital Course: This is a 47-year-old female that was admitted on 01/29/2018 for robotic- assisted vaginal hysterectomy with diagnostic cystoscopy possible BSO. Patient was taken to the operating room and surgery was completed without difficulty for further details on the procedure please see the operative report. Patient's postoperative course has been uneventful. On this postoperative day # 1 she is ambulating and voiding without difficulty. She is passing flatus. She is tolerating a regular diet without nausea or vomiting. She states her pain is well-controlled with Tylenol No. 3 and Motrin. She does wish discharge home. Patient Condition at Discharge: Good Plan - Discharge Summary Discharge Rx Participant: Yes New Discharge Prescriptions: No Action Simvastatin [Zocor] 10 mg PO HS Levothyroxine Sodium [Synthroid] 75 mcg PO QAM Hyoscyamine Sulfate [Hyoscyamine Sulfate SL] 0.125 mg SL Q3-4H PRN PRN Reason: Pain Acetaminophen [Tylenol Extra Strength] 500 mg PO Q4H PRN PRN Reason: Pain Discharge Medication List Levothyroxine Sodium [Synthroid] 75 mcg PO QAM 11/23/17 [History] Simvastatin [Zocor] 10 mg PO HS 11/23/17 [History] Acetaminophen [Tylenol Extra Strength] 500 mg PO Q4H PRN 01/16/18 [History] Hyoscyamine Sulfate [Hyoscyamine Sulfate SL] 0.125 mg SL Q3-4H PRN 01/16/18 [ History] Follow up Appointment(s)/Referral(s): Blaire Hilliard DO [Primary Care Provider] - 2 Weeks Patient Instructions/Handouts: Laparoscopic Hysterectomy (DC), Laparoscopic Hysterectomy (GEN) Activity/Diet/Wound Care/Special Instructions: last dose T# 1200 next dose 6pm motrin last dose 9am next dose 3pm Discharge Disposition: HOME SELF-CARE
== END 2018-01-30 13:55 | disposition home or self-care (01) ==
LOC: ORWHC2ENDO 05:50 → EDSTATUS 09:55 → 6PED 11:07 → ORWHC2ENDO 01-30 13:55
PROVIDERS: ATTEND Obstetrics & Gynecology Obstetrics
DX: N80.0 Endometriosis of uterus (principal); N83.202 Unspecified ovarian cyst, left side; D25.9 Leiomyoma of uterus, unspecified; N73.6 Female pelvic peritoneal adhesions (postinfective); E78.5 Hyperlipidemia, unspecified; E03.9 Hypothyroidism, unspecified; Z79.890 Hormone replacement therapy; Z79.899 Other long term (current) drug therapy; Z88.1 Allergy status to other antibiotic agents; Z88.0 Allergy status to penicillin
CPT/HCPCS: 58552; S2900; 81025; 85025; 86850; 86900; 86901; 88307

== ENCOUNTER → 2018-04-25 | Outpatient (CLI) | payer BC ==
[2018-04-25 08:39] LABS: Basophils # (A) 0.1 k/uL (0-0.2); Basophils % (A) 1 %; Eosinophils # (A) 0.4 k/uL (0-0.7); Eosinophils % (A) 6 %; HCT 41.1 % (34.0-46.0); HGB 13.2 gm/dL (11.4-16.0); Lymphocytes # (A) 1.6 k/uL (1.0-4.8); Lymphocytes % (A) 28 %; MCH 28.1 pg (25.0-35.0); MCHC 32.1 g/dL (31.0-37.0); MCV 87.6 fL (80.0-100.0); Mean Platelet Volume 6.5; Monocytes # (A) 0.3 k/uL (0-1.0); Monocytes % (A) 5 %; Neutrophils # (A) 3.2 k/uL (1.3-7.7); Neutrophils % (A) 57 %; Platelet Count 295 k/uL (150-450); RBC 4.69 m/uL (3.80-5.40); RDW 13.4 % (11.5-15.5); WBC 5.6 k/uL (3.8-10.6)
[2018-04-25 08:49] LABS: Appearance,Urine Clear (Clear); Bilirubin,Urine Negative (Negative); Blood,Urine Negative (Negative); Color,Urine Yellow; Glucose,Urine (UA) Negative (Negative); Ketones,Urine Negative (Negative); Leukocyte Esterase,Urine Moderate (Negative); Mucus,Urine Few /hpf; Nitrite,Urine Negative (Negative); Protein,Urine Negative (Negative); Specific Gravity,Urine 1.021 (1.001-1.035); Squamous Epithelial Cell,Urine 6 /hpf (0-4); Urobilinogen,Urine <2.0 mg/dL (<2.0); WBC,Urine 1 /hpf (0-5)
[2018-04-25 15:51] LABS: Albumin 4.5 g/dL (3.80-4.90); Albumin/Globulin Ratio 2.14 (1.20-2.10); Anion Gap 7.9 mmol/L (4.00-12.00); Calcium 9.2 mg/dL (8.7-10.3); Carbon Dioxide 26.1 mmol/L (21.6-31.8); Globulin 2.1 g/dL (1.6-3.3); Potassium 4.1 mmol/L (3.5-5.5); Total Bilirubin 0.6 mg/dL (0.3-1.2); Total Protein 6.6 g/dL (6.2-8.2)
[2018-04-25 15:59] LABS: T4, Free (Free Thyroxine) 1.3 ng/dL (0.80-1.80)
[2018-04-25 17:18] LABS: Hemoglobin A1C 5.2 % (4.0-6.0)
== END ==
LOC: LABWHC1 08:08
PROVIDERS: ATTEND Family Medicine
DX: E03.9 Hypothyroidism, unspecified (principal); E78.5 Hyperlipidemia, unspecified
CPT/HCPCS: 36415; 80053; 80061; 81001; 83036; 84439; 84443; 85025

== ENCOUNTER 2018-05-26 20:18 | Emergency (ER) | payer BC ==
[2018-05-26] MEDS ORDERED: ASPIRIN 81 MG PO STA (21:06)
--- NOTE | 2018-05-26 21:11 | ED ---
Chest Pain HPI - General Chief Complaint: Chest Pain Stated Complaint: Chest pressure Time Seen by Provider: 05/26/18 20:28 Source: patient Mode of arrival: ambulatory Limitations: no limitations - History of Present Illness Initial Comments: Patient is a 39-year-old female who presents with a chief complaint of atypical chest pain. The patient states that while she was at home watching television she had an episode of sharp substernal chest pain associated with nausea. The patient states that the episode lasted a few minutes but has since resolved. She states she has a history of hypertension, hyperlipidemia, and a family history of CAD including most of her father's side. She states that her father had a quadruple bypass at the age of 46. Patient states that currently in the emergency department, she is pain-free. She cannot identify inciting incident. There are no aggravating or alleviating factors noted. - Related Data Home Medications Medication Instructions Recorded Confirmed Levothyroxine Sodium [Synthroid] 75 mcg PO QAM 11/23/17 05/26/18 Simvastatin [Zocor] 10 mg PO HS 11/23/17 05/26/18 Sulfamethox-Tmp 800-160Mg [Bactrim 1 tab PO Q12HR 05/26/18 05/26/18 DS 800-160 mg] Allergies Allergy/AdvReac Type Severity Reaction Status Date / Time clarithromycin [From Biaxin] Allergy Rash/Hives Verified 05/26/18 20:49 amoxicillin [Amoxicillin] AdvReac Nausea & Verified 05/26/18 20:50 Vomiting Review of Systems ROS Statement: Those systems with pertinent positive or pertinent negative responses have been documented in the HPI. ROS Other: All systems not noted in ROS Statement are negative. Cardiovascular: Reports: chest pain Past Medical History Past Medical History: Hyperlipidemia, Pneumonia, Thyroid Disorder Additional Past Medical History / Comment(s): Hx Pneumonia 18 months ago. Current issues with abd/low back pain. Recent diagnosis of uterine fibriods and a right breast lump. History of Any Multi-Drug Resistant Organisms: None Reported Past Surgical History: Breast Surgery, Section, Hysterectomy, Uterine Ablation Additional Past Surgical History / Comment(s): Section X3. BREAST BX Past Anesthesia/Blood Transfusion Reactions: No Reported Reaction Past Psychological History: No Psychological Hx Reported Smoking Status: Never smoker Past Alcohol Use History: Occasional Past Drug Use History: None Reported - Past Family History Mother Additional Family Medical History / Comment(s): Hydatidiform mole. Father Family Medical History: Myocardial Infarction ([place]) Additional Family Medical History / Comment(s): Triple bypass at 48 yrs old. General Exam Limitations: no limitations General appearance: alert, in no apparent distress Head exam: Present: atraumatic, normocephalic Eye exam: Present: normal appearance, PERRL ENT exam: Present: normal exam Neck exam: Present: normal inspection Respiratory exam: Present: normal lung sounds bilaterally. Absent: respiratory distress, wheezes, rales, rhonchi, stridor Cardiovascular Exam: Present: regular rate, normal rhythm, normal heart sounds. Absent: systolic murmur, diastolic murmur, rubs, gallop, clicks GI/Abdominal exam: Present: soft. 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 INPUTS: History > 1 = Moderately suspicious EKG > 0 = Normal Age > 1 = 45-64 Risk factors > 2 = ?3 risk factors or history of atherosclerotic disease Initial troponin > 0 = ?normal limit Patient presents with a chief complaint of atypical chest pain that lasted about 5 minutes at home. Currently patient isn't symptomatic. Initial vital signs are stable the patient is mildly hypertensive. She is in no acute distress. Patient be evaluated with basic labs including cardiac enzymes, chest x-ray. EKG performed at 2037 shows normal sinus rhythm with a rate of 77 bpm. Segment. Within normal limits, EKG is otherwise unremarkable. No previous EKG to compare to. Patient given aspirin. Lab evaluation of this patient is unremarkable, troponin is negative. His creatinine is 1.47 today, this is of unknown chronicity. Patient informed of these results. Patient is currently being treated for a urinary tract infection , this may be secondary to the infection however the patient was instructed to follow up with primary care and had a laboratory drawn. Electrolytes are stable. I discussed with the patient the utility of the heart score, and that she falls into the moderate risk category. The patient was offered observation and stress test however she would like to follow-up with her doctor, Dr. Youngblood, tomorrow. Patient states that she understands concerning signs and symptoms that should prompt immediate return to the emergency department. Disposition Clinical Impression: AMBIKA (acute kidney injury), Elevated serum creatinine, Moderate risk chest pain Disposition: HOME SELF-CARE Condition: Good Instructions (If sedation given, give patient instructions): Chest Pain (ED) Is patient prescribed a controlled substance at d/c from ED?: No Referrals: Milton Youngblood DO [Primary Care Provider] - 1-2 days
--- NOTE | 2018-05-26 21:35 | XR ---
EXAMINATION TYPE: XR chest 2V DATE OF EXAM: 05/26/2018 COMPARISON: Prior chest x-ray 04/08/2012 HISTORY: Chest pain TECHNIQUE: Frontal and lateral views of the chest are obtained. FINDINGS: There is no focal air space opacity, pleural effusion, or pneumothorax seen. The cardiac silhouette size is within normal limits. The osseous structures are intact. There are overlying car diac leads. IMPRESSION: No acute cardiopulmonary process.
[2018-05-26 21:49] LABS: Basophils % (A) 0 %; Eosinophils # (A) 0.1 k/uL (0-0.7); Eosinophils % (A) 2 %; HCT 40.5 % (34.0-46.0); Lymphocytes # (A) 1.4 k/uL (1.0-4.8); Lymphocytes % (A) 22 %; MCH 28.3 pg (25.0-35.0); MCHC 32.2 g/dL (31.0-37.0); MCV 87.9 fL (80.0-100.0); Mean Platelet Volume 6.3; Monocytes # (A) 0.2 k/uL (0-1.0); Monocytes % (A) 3 %; Neutrophils # (A) 4.6 k/uL (1.3-7.7); Neutrophils % (A) 73 %; Platelet Count 269 k/uL (150-450); RBC 4.61 m/uL (3.80-5.40); RDW 13.7 % (11.5-15.5); WBC 6.3 k/uL (3.8-10.6)
[2018-05-26 21:50] LABS: Calcium 9.3 mg/dL (8.4-10.2); Potassium 3.9 mmol/L (3.5-5.1)
[2018-05-26 22:53] VITALS: BP 113/69; PULSE 71; RESP 20; TEMP 98.3
== END 2018-05-26 23:15 | disposition home or self-care (01) ==
LOC: EC 20:18
DX: R07.89 Other chest pain (principal); N17.9 Acute kidney failure, unspecified; I10 Essential (primary) hypertension; E78.5 Hyperlipidemia, unspecified; E07.9 Disorder of thyroid, unspecified; Z79.890 Hormone replacement therapy; Z79.899 Other long term (current) drug therapy; Z88.0 Allergy status to penicillin; Z88.1 Allergy status to other antibiotic agents; Z82.49 Family history of ischemic heart disease and other diseases of the circulatory system
CPT/HCPCS: 36415; 71046; 80048; 84484; 85025; 93005; 99285

== ENCOUNTER → 2018-06-03 | Outpatient (CLI) | payer BC ==
--- NOTE | 2018-06-03 12:45 | EST ---
EXERCISE STRESS AGE: 47 SEX: F HT: 5'0" WT: 138 PROTOCOL: Cardiolite Rafiq Stress Test STAGE: III DURATION OF EXERCISE: 9:00 HEART RATE REST: 64 BLOOD PRESSURE REST: 112/81 MAXIMUM HEART RATE ACHIEVED: 153 MAXIMUM BLOOD PRESSURE: 171/68 85% MPHR: 146 100% MPHR: 172 METS: 10.5 INDICATIONS: Chest pain. CLINICAL INFORMATION: A stress Cardiolite study was performed. Patient was exercised for a total period of 9 minutes. The peak heart rate of 153 was achieved. Maximum blood pressure of 171/68 mmHg was noted. Resting EKG shows normal sinus rhythm with normal ID interval and QRS duration and normal ST-T waves. No ST-segment depression suggestive of ischemia is noted. Patient did not complain of any anginal pain during the test. FINAL IMPRESSION: 1. This stress EKG is not suggestive of ischemia. 2. Patient did not complain of any anginal pain during the test. 3. No dysrhythmias are noted. 4. The results of the nuclear study will follow. SUZY / ILYAN: [id number] /
--- NOTE | 2018-06-03 13:31 | NM ---
EXAMINATION TYPE: NM stress cardiolite complete DATE OF EXAM: 06/03/2018 COMPARISON: NONE HISTORY: History of hypercholesteremia family history of coronary artery disease presents with chest pain TECHNIQUE: After the intravenous administration of 10.22 mCi Tc 99m Sestamibi - Rest images obtained 75 minutes post injection. The patient exercised using a ROSALIA protocol and 1 minute prior to peak exercise was injected with 25.2 mCi Tc 99m Sestamibi - Stress images obtained 15 minutes post inject ion. FINDINGS: Targeted heart rate was achieved during performance of the study. Review of stress and rest SPECT hernán ges demonstrates no distinct perfusion abnormality. Gated analysis shows normal wall motion with an estimated left ventricular ejection fraction of 59 %. IMPRESSION: No scintigraphic evidence for reversible ischemia
== END | disposition home or self-care (01) ==
LOC: RADNMMAIN 08:33
PROVIDERS: ATTEND Family Medicine
DX: R07.9 Chest pain, unspecified (principal)
CPT/HCPCS: 93017; 78452; A9500

== ENCOUNTER → 2018-08-15 | Outpatient (CLI) | payer BC ==
--- NOTE | 2018-08-15 08:15 | USB ---
Reason for exam: follow-up at short interval from prior study. History: Benign MG stereo VAD BX RT of the right breast, January 25, 2018. Benign right mammotome panel of the right breast, January 06, 2011. Benign right mammotome panel of the right breast, January 06, 2011. Took hormonal contraceptives for 4 years. Physical Findings: Nurse did not find any significant physical abnormalities on exam. US Breast RT Right complete breast ultrasound includes all four quadrants, the retroareolar region and axilla. Finding demonstrates no cystic or solid lesion seen. These results were verbally communicated with the patient and result sheet given to the patient on 08/15/18. ASSESSMENT: Negative, BI-RAD 1 RECOMMENDATION: Follow-up diagnostic mammogram of the right breast.
--- NOTE | 2018-08-15 08:17 | MM ---
Reason for exam: follow-up at short interval from prior study. Last mammogram was performed 7 months ago. History: Benign MG stereo VAD BX RT of the right breast, January 25, 2018. Benign right mammotome panel of the right breast, January 06, 2011. Benign right mammotome panel of the right breast, January 06, 2011. Took hormonal contraceptives for 4 years. MG 3D Diag Mammo W/Cad RT CC and MLO view(s) were taken of the right breast. Prior study comparison: January 10, 2018, bilateral MG 3d diag mammo w/cad ZOILA. July 11, 2017, mammogram, performed at [facility]. The breast tissue is heterogeneously dense. This may lower the sensitivity of mammography. Finding: There are typically benign round, regional calcifications in the middle position of the right breast. Previous mammotome biopsy in the right breast x 4. There is no new dominant lesion. These results were verbally communicated with the patient and result sheet given to the patient on 08/15/18. ASSESSMENT: Benign, BI-RAD 2 RECOMMENDATION: Routine screening mammogram of both breasts in 6 months. Back on schedule.
== END | disposition home or self-care (01) ==
LOC: RADUSWWP 07:01
PROVIDERS: ATTEND Surgery
DX: R92.8 Other abnormal and inconclusive findings on diagnostic imaging of breast (principal)
CPT/HCPCS: 77061; 77065

== ENCOUNTER → 2019-03-13 | Outpatient (CLI) | payer BC ==
--- NOTE | 2019-03-13 07:59 | MM ---
Reason for exam: additional evaluation requested from prior study. Last mammogram was performed 7 months ago. History: Benign MG stereo VAD BX RT of the right breast, January 25, 2018. Benign right mammotome panel of the right breast, January 06, 2011. Benign right mammotome panel of the right breast, January 06, 2011. Took hormonal contraceptives for 4 years. Physical Findings: Nurse did not find any significant physical abnormalities on exam. MG 3D Diag Mammo W/Cad ZOILA Bilateral CC and MLO view(s) were taken. Prior study comparison: August 15, 2018, right breast MG 3d diag mammo w/cad RT. January 10, 2018, bilateral MG 3d diag mammo w/cad ZOILA. The breast tissue is heterogeneously dense. This may lower the sensitivity of mammography. There are stable benign appearing bilateral calcifications. Previous mammotome biopsy in the right breast. No significant new findings when compared with previous films. These results were verbally communicated with the patient and result sheet given to the patient on 03/13/19. ASSESSMENT: Benign, BI-RAD 2 RECOMMENDATION: Routine screening mammogram of both breasts in 1 year.
== END ==
LOC: RADMAMWWP 06:53
PROVIDERS: ATTEND Surgery
DX: R92.8 Other abnormal and inconclusive findings on diagnostic imaging of breast (principal)
CPT/HCPCS: 77062; 77066

== ENCOUNTER 2019-04-04 23:22 | Emergency (ER) | payer BC ==
--- NOTE | 2019-04-05 00:05 | XR ---
EXAMINATION TYPE: XR chest 2V DATE OF EXAM: 04/05/2019 COMPARISON: NONE HISTORY: Chest pain TECHNIQUE: Frontal and lateral views of the chest are obtained. FINDINGS: Heart and mediastinum are normal. Lungs are clear. Diaphragm is normal. Bony thorax appear s normal. IMPRESSION: Normal chest. No change.
--- NOTE | 2019-04-05 00:33 | ED ---
URI HPI - General Chief Complaint: Upper Respiratory Infection Stated Complaint: CIELO Time Seen by Provider: 04/04/19 23:37 Source: patient Mode of arrival: ambulatory Limitations: no limitations - History of Present Illness Initial Comments: Patient is a 48-year-old female presenting to the emergency department with a chief complaint of a cough. Patient reports she developed a cough over a month ago. She states about 2 weeks after she went to the urgent care and was prescribed Levaquin for 10 days and steroids. Patient reports she finished the medication but continues to be having a nonproductive cough. Patient does report intermittent shortness of breath but denies any chest pain. She states occasionally there is some mild wheezing. She also reports bilateral clear rhinorrhea. She denies any night sweats fevers or chills. She does ago she also developed a sore throat. She also reports a headache after coughing fits. Patient denies a history of asthma, COPD or smoking. Patient denies otalgia, sinus pressure or tenderness. Patient denies abdominal pain or back pain. Patient denies recent prolonged periods of inactivity, recent hospitalizations, exogenous estrogen use, currently chemotherapy treatment, unilateral leg swelling, hemoptysis. - Related Data Home Medications Medication Instructions Recorded Confirmed Levothyroxine Sodium [Synthroid] 75 mcg PO QAM 11/23/17 05/26/18 Simvastatin [Zocor] 10 mg PO HS 11/23/17 05/26/18 Sulfamethox-Tmp 800-160Mg [Bactrim 1 tab PO Q12HR 05/26/18 05/26/18 DS 800-160 mg] Allergies Allergy/AdvReac Type Severity Reaction Status Date / Time clarithromycin [From Biaxin] Allergy Rash/Hives Verified 04/04/19 23:32 amoxicillin [Amoxicillin] AdvReac Nausea & Verified 04/04/19 23:32 Vomiting Review of Systems ROS Statement: Those systems with pertinent positive or pertinent negative responses have been documented in the HPI. ROS Other: All systems not noted in ROS Statement are negative. Past Medical History Past Medical History: Hyperlipidemia, Pneumonia, Thyroid Disorder Additional Past Medical History / Comment(s): Hx Pneumonia 18 months ago. Current issues with abd/low back pain. Recent diagnosis of uterine fibriods and a right breast lump. History of Any Multi-Drug Resistant Organisms: None Reported Past Surgical History: Breast Surgery, Section, Hysterectomy, Uterine Ablation Additional Past Surgical History / Comment(s): Section X3. BREAST BX Past Anesthesia/Blood Transfusion Reactions: No Reported Reaction Past Psychological History: No Psychological Hx Reported Smoking Status: Never smoker Past Alcohol Use History: Occasional Past Drug Use History: None Reported - Past Family History Mother Additional Family Medical History / Comment(s): Hydatidiform mole. Father Family Medical History: Myocardial Infarction ([place]) Additional Family Medical History / Comment(s): Triple bypass at 48 yrs old. General Exam Limitations: no limitations General appearance: alert, in no apparent distress Head exam: Present: atraumatic, normocephalic, normal inspection Eye exam: Present: normal appearance, PERRL, EOMI Pupils: Present: normal accommodation ENT exam: Present: normal exam, normal oropharynx (Uvula midline. No tonsillar erythema, enlargement or exudates.), mucous membranes moist, TM's normal bilaterally (No bulging membrane or erythema), normal external ear exam Neck exam: Present: normal inspection, full ROM. Absent: tenderness, lymphadenopathy Respiratory exam: Present: normal lung sounds bilaterally. Absent: respiratory distress, wheezes, rales, rhonchi, stridor, chest wall tenderness, accessory muscle use, decreased breath sounds, prolonged expiratory Cardiovascular Exam: Present: regular rate, normal rhythm, systolic murmur GI/Abdominal exam: Present: soft. Absent: tenderness Extremities exam: Present: normal inspection, full ROM Back exam: Present: normal inspection, full ROM Neurological exam: Present: alert, oriented X3 Psychiatric exam: Present: normal affect, normal mood Skin exam: Present: warm, dry, intact, normal color Course Vital Signs 04/04/19 04/04/19 23:30 23:43 Temperature 99.9 F H Pulse Rate 101 H Respiratory 20 20 Rate Blood Pressure 132/83 O2 Sat by Pulse 99 Oximetry Medical Decision Making - Medical Decision Making Patient is a 48-year-old female presenting to emergency Department with a chief complaint of a cough. Her symptoms have been ongoing for about a month. Physical exam is unremarkable. Chest x-ray negative. PERC positive. D-dimer and flu negative negative. I have low suspicion for a PE. No chest pain. Considering that the patient recently finished a 10 day course of Levaquin I have a high suspicion that her symptoms are due to a viral respiratory etiology. Patient prescribed Tessalon Perles. Patient advised to follow-up with primary care. Supportive care discussed with patient. Strict return parameters were thoroughly discussed with patient was understanding and agreeable. Case discussed with physician. - Lab Data Lab Results 04/05/19 04/05/19 Range/Units 00:24 00:24 D-Dimer 0.21 (<0.60) mg/L FEU Influenza Type A RNA Not Detected (Not Detectd) Influenza Type B (PCR) Not Detected (Not Detectd) Disposition Clinical Impression: Viral respiratory infection Disposition: HOME SELF-CARE Condition: Stable Instructions (If sedation given, give patient instructions): Upper Respiratory Infection (ED) Additional Instructions: Please follow up with primary care. Please take prescribed medication as directed. Please return to emergency department if symptoms worsen. Is patient prescribed a controlled substance at d/c from ED?: No Referrals: Milton Youngblood DO [Primary Care Provider] - 1-2 days Time of Disposition: 01:06
[2019-04-05 01:23] VITALS: BP 118/74; PULSE 99; RESP 16; TEMP 100.8
== END 2019-04-05 01:29 | disposition home or self-care (01) ==
LOC: EC 23:22
DX: J98.8 Other specified respiratory disorders (principal); B34.9 Viral infection, unspecified; R01.1 Cardiac murmur, unspecified; E78.5 Hyperlipidemia, unspecified; E07.9 Disorder of thyroid, unspecified; Z88.0 Allergy status to penicillin; Z88.1 Allergy status to other antibiotic agents; Z79.890 Hormone replacement therapy; Z79.899 Other long term (current) drug therapy; Z87.01 Personal history of pneumonia (recurrent)
CPT/HCPCS: 36415; 71046; 85379; 87502; 99285

== ENCOUNTER → 2019-04-14 | Outpatient (CLI) | payer BC ==
[2019-04-14 17:39] LABS: Basophils % (A) 1 %; Eosinophils # (A) 0.1 k/uL (0-0.7); Eosinophils % (A) 1 %; HCT 40.3 % (34.0-46.0); HGB 13.2 gm/dL (11.4-16.0); Lymphocytes # (A) 0.8 k/uL (1.0-4.8); Lymphocytes % (A) 18 %; MCH 29.2 pg (25.0-35.0); MCHC 32.7 g/dL (31.0-37.0); MCV 89.5 fL (80.0-100.0); Mean Platelet Volume 6.8; Monocytes # (A) 0.3 k/uL (0-1.0); Monocytes % (A) 7 %; Neutrophils # (A) 2.9 k/uL (1.3-7.7); Neutrophils % (A) 70 %; Platelet Count 241 k/uL (150-450); RDW 12.9 % (11.5-15.5); WBC 4.2 k/uL (3.8-10.6)
== END | disposition home or self-care (01) ==
LOC: LABWHC1 16:47
PROVIDERS: ATTEND Otolaryngology
DX: R53.83 Other fatigue (principal); R09.02 Hypoxemia
CPT/HCPCS: 36415; 85025; 86308

== ENCOUNTER → 2019-06-18 | Outpatient (CLI) | payer BC ==
[2019-06-18 12:05] LABS: Non-African American GFR(CKD) 75.1 (60.0-200.0)
== END | disposition home or self-care (01) ==
LOC: LABWHC1 07:02
PROVIDERS: ATTEND Otolaryngology
DX: R79.89 Other specified abnormal findings of blood chemistry (principal)
CPT/HCPCS: 36415; 82565; 84520

== ENCOUNTER → 2019-12-22 | Outpatient (CLI) | payer BC ==
--- NOTE | 2019-12-22 08:12 | US ---
EXAMINATION TYPE: US liver DATE OF EXAM: 12/22/2019 COMPARISON: NONE CLINICAL HISTORY: 49-year-old female R74.0 Nonspecific elevation of levels LDH. TECHNIQUE: Multiple sonographic images of the right upper quadrant are obtained. FINDINGS: EXAM MEASUREMENTS: Liver Length: 14.3 cm Gallbladder Wall: 0.2 cm CBD: 0.3 cm Right Kidney: 9.8 x 3.4 x 4.0 cm Pancreas: Tail obscured by overlying bowel gas, visualized portions wnl Liver: Homogeneous appearance without focal lesion. Gallbladder: wnl Evidence for sonographic Billings's sign: No CBD: wnl Right Kidney: No hydronephrosis. IMPRESSION: No gallstones or biliary ductal dilatation. Overall homogeneous appearance to the liver by ultrasound .
== END | disposition home or self-care (01) ==
LOC: RADUSWWP 07:14
PROVIDERS: ATTEND Internal Medicine
DX: R74.0 Nonspecific elevation of levels of transaminase and lactic acid dehydrogenase [LDH] (principal)
CPT/HCPCS: 76705

== ENCOUNTER 2020-01-26 21:27 | Emergency (ER) | payer BC ==
--- NOTE | 2020-01-26 22:28 | XR ---
EXAMINATION TYPE: XR chest 2V DATE OF EXAM: 01/26/2020 COMPARISON: 04/05/2019 HISTORY: Short of breath TECHNIQUE: FINDINGS: Heart and mediastinum are normal. Lungs are clear. Diaphragm is normal. Bony thorax appears normal. IMPRESSION: Normal chest. No change.
--- NOTE | 2020-01-26 23:07 | ED ---
General Adult HPI - General Chief complaint: Shortness of Breath Stated complaint: CIELO, Headache Time Seen by Provider: 01/26/20 22:00 Source: patient Mode of arrival: wheelchair Limitations: no limitations - History of Present Illness Initial comments: 49-year-old female presents to the emergency department this evening with complaints of shortness of breath and chest discomfort. Patient states her symptoms began 48 hours prior to arrival and have waxed and waned. In describing her shortness of breath, patient states she feels as if she cannot fi ll her lungs with air and that she has to really focus on her breathing. Also reports a nonspecific midsternal chest discomfort that correlates with her shortness of breath. Denies any recent prolonged car rides or travel of great distance. Patient also complains of headache this evening. Reports taking Motrin prior to arrival and has experienced improvement in her headache pain. Patient denies any nausea, vomiting, dizziness, and vision changes. States her suggested anxiety or stress as a source of her symptoms, but patient she is concerned there is something more going on due to her family history of cardiac issues. Patient denies any recent rash, fever, chills, cough, abdominal pain, diarrhea, constipation, back pain, numbness, tingling, dizziness, weakness, hematuria, dysuria, urinary urgency, urinary frequency, or any other complaints. - Related Data Home Medications Medication Instructions Recorded Confirmed Levothyroxine Sodium [Synthroid] 75 mcg PO QAM 11/23/17 05/26/18 Simvastatin [Zocor] 10 mg PO HS 11/23/17 05/26/18 Sulfamethox-Tmp 800-160Mg [Bactrim 1 tab PO Q12HR 05/26/18 05/26/18 DS 800-160 mg] Allergies Allergy/AdvReac Type Severity Reaction Status Date / Time clarithromycin [From Biaxin] Allergy Rash/Hives Verified 04/04/19 23:32 amoxicillin [Amoxicillin] AdvReac Nausea & Verified 04/04/19 23:32 Vomiting Review of Systems ROS Statement: Those systems with pertinent positive or pertinent negative responses have been documented in the HPI. ROS Other: All systems not noted in ROS Statement are negative. Past Medical History Past Medical History: Hyperlipidemia, Pneumonia, Thyroid Disorder Additional Past Medical History / Comment(s): Recent diagnosis of uterine fibriods and a right breast lump. History of Any Multi-Drug Resistant Organisms: None Reported Past Surgical History: Breast Surgery, Section, Hysterectomy, Uterine Ablation Additional Past Surgical History / Comment(s): Section X3. BREAST BX Past Anesthesia/Blood Transfusion Reactions: No Reported Reaction Past Psychological History: No Psychological Hx Reported Past Alcohol Use History: Occasional Past Drug Use History: None Reported - Past Family History Mother Additional Family Medical History / Comment(s): Hydatidiform mole. Father Family Medical History: Myocardial Infarction ([place]) Additional Family Medical History / Comment(s): Triple bypass at 48 yrs old. General Exam Limitations: no limitations General appearance: alert, in no apparent distress, other (Well-developed, well- nourished female in no acute distress. Initial temperature 97.9F, pulse 65, respirations 18, blood pressure 133/68, pulse ox 98% on room air.) Eye exam: Present: normal appearance, PERRL, EOMI. Absent: scleral icterus, conjunctival injection, periorbital swelling Respiratory exam: Present: normal lung sounds bilaterally. Absent: respiratory distress, wheezes, rales, rhonchi, stridor Cardiovascular Exam: Present: regular rate, normal rhythm, normal heart sounds. Absent: systolic murmur, diastolic murmur, rubs, gallop, clicks, S3, S4 GI/Abdominal exam: Present: soft, normal bowel sounds. Absent: distended, tenderness, guarding, rebound, rigid Extremities exam: Present: normal inspection, full ROM, normal capillary refill. Absent: tenderness, pedal edema, joint swelling, calf tenderness Neurological exam: Present: alert, oriented X3, CN II-XII intact Psychiatric exam: Present: normal affect, normal mood Skin exam: Present: warm, dry, intact, normal color. Absent: rash Course Vital Signs 01/26/20 01/27/20 21:37 00:11 Temperature 97.9 F 97.6 F Pulse Rate 65 68 Respiratory 18 16 Rate Blood Pressure 133/68 106/73 O2 Sat by Pulse 98 98 Oximetry EKG Findings - EKG Comments: EKG Findings:: EKG obtained at 2145 shows sinus pericardial ventricular rate of 59, LA interval 168, QT 404, QTC 399. No evidence of ST elevation or depression. Medical Decision Making - Medical Decision Making 49-year-old female patient presents to the emergency department today for evaluation of shortness of breath. Physical examination was unremarkable, lungs are clear to auscultation. No wheezing or other adventitious sounds. EKG showed normal sinus rhythm labs reviewed and were unremarkable. Troponin was negative. D-dimer was negative. Chest x-ray showed no acute cardiopulmonary process. Upon reevaluation patient is resting comfortably in bed. States her symptoms have improved. We did discuss all of her findings and results. Since symptoms started two days ago we will be able to discharge the patient home. She is instructed to follow-up with her primary care physician for recheck in 1-2 days. She is urged discuss cardiology consultation and possible stress test. Return parameters were discussed in detail. She verbalizes understanding and agrees with this plan. - Lab Data Result diagrams: 01/26/20 23:14 01/26/20 23:14 Lab Results 01/26/20 01/26/20 01/26/20 Range/Units 23:14 23:14 23:14 WBC 9.6 (3.8-10.6) k/uL RBC 4.61 (3.80-5.40) m/uL Hgb 13.3 (11.4-16.0) gm/dL Hct 40.6 (34.0-46.0) % MCV 88.1 (80.0-100.0) fL MCH 28.9 (25.0-35.0) pg MCHC 32.8 (31.0-37.0) g/dL RDW 12.3 (11.5-15.5) % Plt Count 262 (150-450) k/uL Neutrophils % 74 % Lymphocytes % 18 % Monocytes % 4 % Eosinophils % 3 % Basophils % 1 % Neutrophils # 7.0 (1.3-7.7) k/uL Lymphocytes # 1.7 (1.0-4.8) k/uL Monocytes # 0.3 (0-1.0) k/uL Eosinophils # 0.3 (0-0.7) k/uL Basophils # 0.1 (0-0.2) k/uL PT 9.7 (9.0-12.0) sec INR 0.9 (<1.2) APTT 22.9 (22.0-30.0) sec D-Dimer <0.17 (<0.60) mg/L FEU Sodium 136 L (137-145) mmol/L Potassium 3.7 (3.5-5.1) mmol/L Chloride 103 (98-107) mmol/L Carbon Dioxide 25 (22-30) mmol/L Anion Gap 8 mmol/L BUN 19 H (7-17) mg/dL Creatinine 0.71 (0.52-1.04) mg/dL Est GFR (CKD-EPI)AfAm >90 (>60 ml/min/1.73 sqM) Est GFR (CKD-EPI)NonAf >90 (>60 ml/min/1.73 sqM) Glucose 143 H (74-99) mg/dL Calcium 9.6 (8.4-10.2) mg/dL Magnesium 1.9 (1.6-2.3) mg/dL Total Bilirubin 0.7 (0.2-1.3) mg/dL AST 23 (14-36) U/L ALT 15 (4-34) U/L Alkaline Phosphatase 51 (38-126) U/L Troponin I (0.000-0.034) ng/mL Total Protein 7.5 (6.3-8.2) g/dL Albumin 4.6 (3.5-5.0) g/dL 01/26/20 Range/Units 23:14 WBC (3.8-10.6) k/uL RBC (3.80-5.40) m/uL Hgb (11.4-16.0) gm/dL Hct (34.0-46.0) % MCV (80.0-100.0) fL MCH (25.0-35.0) pg MCHC (31.0-37.0) g/dL RDW (11.5-15.5) % Plt Count (150-450) k/uL Neutrophils % % Lymphocytes % % Monocytes % % Eosinophils % % Basophils % % Neutrophils # (1.3-7.7) k/uL Lymphocytes # (1.0-4.8) k/uL Monocytes # (0-1.0) k/uL Eosinophils # (0-0.7) k/uL Basophils # (0-0.2) k/uL PT (9.0-12.0) sec INR (<1.2) APTT (22.0-30.0) sec D-Dimer (<0.60) mg/L FEU Sodium (137-145) mmol/L Potassium (3.5-5.1) mmol/L Chloride (98-107) mmol/L Carbon Dioxide (22-30) mmol/L Anion Gap mmol/L BUN (7-17) mg/dL Creatinine (0.52-1.04) mg/dL Est GFR (CKD-EPI)AfAm (>60 ml/min/1.73 sqM) Est GFR (CKD-EPI)NonAf (>60 ml/min/1.73 sqM) Glucose (74-99) mg/dL Calcium (8.4-10.2) mg/dL Magnesium (1.6-2.3) mg/dL Total Bilirubin (0.2-1.3) mg/dL AST (14-36) U/L ALT (4-34) U/L Alkaline Phosphatase (38-126) U/L Troponin I <0.012 (0.000-0.034) ng/mL Total Protein (6.3-8.2) g/dL Albumin (3.5-5.0) g/dL - Radiology Data Radiology results: report reviewed, image reviewed Two-view x-ray of the chest was obtained. Report is reviewed in its entirety. Impression by Dr. Gomez shows normal chest. No change. Disposition Clinical Impression: Dyspnea, Nausea Disposition: HOME SELF-CARE Condition: Good Instructions (If sedation given, give patient instructions): Dyspnea (ED) Additional Instructions: Follow-up with your primary care physician for recheck in 1-2 days. Discuss concerns of stress and anxiety. Also discussed possible repeat stress testing. Return to the emergency department immediately for any new, worsening, or concerning symptoms. Is patient prescribed a controlled substance at d/c from ED?: No Referrals: Nishi Jorge MD [Primary Care Provider] - 1-2 days Time of Disposition: 00:34
[2020-01-26 23:23] LABS: Basophils # (A) 0.1 k/uL (0-0.2); Basophils % (A) 1 %; Eosinophils # (A) 0.3 k/uL (0-0.7); Eosinophils % (A) 3 %; HCT 40.6 % (34.0-46.0); HGB 13.3 gm/dL (11.4-16.0); Lymphocytes # (A) 1.7 k/uL (1.0-4.8); Lymphocytes % (A) 18 %; MCH 28.9 pg (25.0-35.0); MCHC 32.8 g/dL (31.0-37.0); MCV 88.1 fL (80.0-100.0); Mean Platelet Volume 7.1; Monocytes # (A) 0.3 k/uL (0-1.0); Monocytes % (A) 4 %; Neutrophils % (A) 74 %; Platelet Count 262 k/uL (150-450); RBC 4.61 m/uL (3.80-5.40); RDW 12.3 % (11.5-15.5); WBC 9.6 k/uL (3.8-10.6)
[2020-01-26 23:39] LABS: D-Dimer <0.17 mg/L FEU (<0.60); INR 0.9 (<1.2); Partial Thromboplastin Time 22.9 sec (22.0-30.0); Prothrombin Time 9.7 sec (9.0-12.0)
[2020-01-26 23:41] LABS: ALT 15 U/L (4-34); AST 23 U/L (14-36); African American GFR (CKD) >90 (>60 ml/min/1.73 sqM); Albumin 4.6 g/dL (3.5-5.0); Alkaline Phosphatase 51 U/L (38-126); Anion Gap 8 mmol/L; Blood Urea Nitrogen 19 mg/dL (7-17); Calcium 9.6 mg/dL (8.4-10.2); Carbon Dioxide 25 mmol/L (22-30); Chloride 103 mmol/L (98-107); Glucose 143 mg/dL (74-99); Magnesium 1.9 mg/dL (1.6-2.3); Non-African American GFR(CKD) >90 (>60 ml/min/1.73 sqM); Potassium 3.7 mmol/L (3.5-5.1); Sodium 136 mmol/L (137-145); Total Bilirubin 0.7 mg/dL (0.2-1.3); Total Protein 7.5 g/dL (6.3-8.2)
[2020-01-27 00:12] VITALS: BP 106/73; PULSE 68; RESP 16; TEMP 97.6
== END 2020-01-27 00:23 | disposition home or self-care (01) ==
LOC: EC 21:27
DX: R06.00 Dyspnea, unspecified (principal); R11.0 Nausea; R07.89 Other chest pain; E07.9 Disorder of thyroid, unspecified; E78.5 Hyperlipidemia, unspecified; Z79.890 Hormone replacement therapy; Z79.899 Other long term (current) drug therapy; Z88.0 Allergy status to penicillin; Z88.1 Allergy status to other antibiotic agents
CPT/HCPCS: 36415; 71046; 80053; 83735; 84484; 85025; 85379; 85610; 85730; 93005; 99285

== ENCOUNTER → 2020-02-19 | Outpatient (CLI) | payer BC ==
--- NOTE | 2020-02-19 10:58 | CT ---
EXAMINATION TYPE: CT heart w calcium score DATE OF EXAM: 02/19/2020 COMPARISON: HISTORY: Screening for cardiovascular disorder. 213.9 CT DLP: 67.2 mGycm Automated exposure control for dose reduction was used. CT CALCIUM SCORING Coronary calcium is a marker for plaque (fatty deposits) in a blood vessel or atherosclerosis (harden ing of the arteries). The presence and amount of calcium detected in a coronary artery by the CT sca n, indicates the presence and amount of atherosclerotic plaque. These calcium deposits appear years before the development of heart disease symptoms such as chest pain and shortness of breath. A calcium score is computed for each of the coronary arteries based upon the volume and density of th e calcium deposits. This can be referred to as your calcified plaque burden. It does not correspond directly to the percentage of narrowing in the artery but does correlate with the severity of the un derlying coronary atherosclerosis. PROCEDURE TECHNIQUE - Prospective Gating was used. Slice thickness: 3mm. Density threshold (HU): 130, Pixel threshold: 3, Algorithm: discrete. RESULTS Region: LM Calcium Score (Agatston): 0 Volume (mm3): 0 Mass (g): 0 Region: RCA Calcium Score (Agatston): 0 Volume (mm3): 0 Mass (g): 0 Region: LAD Calcium Score (Agatston): 18.59 Volume (mm3): 14.36 Mass (g): 4.79 Region: CX Calcium Score (Agatston): 0 Volume (mm3): 0 Mass (g): 0 Region: PDA Calcium Score (Agatston): 0 Volume (mm3): 0 Mass (g): 0 Total: Calcium Score (Agatston): 0 Volume (mm3): 0 Mass (g): 0 TOTAL CALCIUM SCORE: 18.59 IMPRESSION: Calcium Score: 18.59 Implication: Definite, at least mild atherosclerotic plaque Risk of Coronary Artery Disease: Mild risk of coronary artery narrowings Subpleural pleural nodularity in the left upper lobe with pleural thickening is too small to charact erize and none sedation. Visualized osseous structures intact. Small lymph nodes seen in the lateral margin of the left breast measuring less than a centimeter. Visualized aorta of normal caliber. Minim al residual thymic tissue. CALCIUM SCORE IMPLICATION RISK OF C ORONARY ARTERY DISEASE 0 No identifiable plaque Very low, generally less than 5% 1-10 Minimal identifiable plaque Very unlikely, less than 10% 11-100 Definite, at least mild atherosclerotic plaque Mild or m inimal coronary narrowings likely 101-400 Definite, at least moderate atherosclerotic plaque Mild coronary ar santosh disease highly likely, significant narrowing possible 401 or Higher Extensive atherosclerotic plaque High lik elihood of at least one significant coronary narrowing
== END | disposition home or self-care (01) ==
LOC: RADCTMAIN 09:00
PROVIDERS: ATTEND Internal Medicine
DX: I25.10 Atherosclerotic heart disease of native coronary artery without angina pectoris (principal); Z82.49 Family history of ischemic heart disease and other diseases of the circulatory system
CPT/HCPCS: 75571

== ENCOUNTER → 2020-03-15 | Outpatient (CLI) | payer BC ==
--- NOTE | 2020-03-16 13:31 | MM ---
Reason for exam: screening (asymptomatic). Last mammogram was performed 1 year ago. History: Benign MG stereo VAD BX RT of the right breast, January 25, 2018. Benign right mammotome panel of the right breast, January 06, 2011. Benign right mammotome panel of the right breast, January 06, 2011. Took hormonal contraceptives for 4 years. Physical Findings: A clinical breast exam by your physician is recommended on an annual basis and results should be correlated with mammographic findings. MG 3D Screening Mammo W/Cad Bilateral CC, MLO, and XCCL view(s) were taken. Prior study comparison: March 13, 2019, bilateral MG 3d diag mammo w/cad ZOILA. August 15, 2018, right breast MG 3d diag mammo w/cad RT. The breast tissue is heterogeneously dense. This may lower the sensitivity of mammography. No significant changes when compared with prior studies. ASSESSMENT: Benign, BI-RAD 2 RECOMMENDATION: Routine screening mammogram of both breasts in 1 year.
== END | disposition home or self-care (01) ==
LOC: RADMAMWWP 08:33
PROVIDERS: ATTEND Obstetrics & Gynecology Obstetrics
DX: Z12.31 Encounter for screening mammogram for malignant neoplasm of breast (principal)
CPT/HCPCS: 77063; 77067

== ENCOUNTER → 2021-04-06 | Outpatient (CLI) | payer BC ==
--- NOTE | 2021-04-07 14:17 | MM ---
Reason for exam: screening (asymptomatic). Last mammogram was performed 1 year and 1 month ago. History: Benign MG stereo VAD BX RT of the right breast, January 25, 2018. Benign right mammotome panel of the right breast, January 06, 2011. Benign right mammotome panel of the right breast, January 06, 2011. Took hormonal contraceptives for 4 years. Physical Findings: A clinical breast exam by your physician is recommended on an annual basis and results should be correlated with mammographic findings. MG 3D Screening Mammo W/Cad Bilateral CC and MLO view(s) were taken. Prior study comparison: March 15, 2020, bilateral MG 3d screening mammo w/cad. March 13, 2019, bilateral MG 3d diag mammo w/cad ZOILA. The breast tissue is heterogeneously dense. This may lower the sensitivity of mammography. Finding: There are indeterminate calcifications in the central position of the right breast. New finding since March 15, 2020 and March 13, 2019. ASSESSMENT: Incomplete: need additional imaging evaluation, BI-RAD 0 RECOMMENDATION: Special view mammogram of the right breast. [facility] will attempt to contact patient to return for supplemental views.
== END | disposition home or self-care (01) ==
LOC: RADMAMWWP 11:15
PROVIDERS: ATTEND Obstetrics & Gynecology Obstetrics
DX: Z13.29 Encounter for screening for other suspected endocrine disorder (principal)
CPT/HCPCS: 77063; 77067

== ENCOUNTER → 2021-04-14 | Outpatient (CLI) | payer BC ==
--- NOTE | 2021-04-14 10:49 | MM ---
Reason for exam: additional evaluation requested from abnormal screening. Last mammogram was performed less than 1 month ago. History: Benign MG stereo VAD BX RT of the right breast, January 25, 2018. Benign right mammotome panel of the right breast, January 06, 2011. Benign right mammotome panel of the right breast, January 06, 2011. Took hormonal contraceptives for 4 years. Physical Findings: Nurse did not find any significant physical abnormalities on exam. MG 3D Work Up W/Cad ZOILA Bilateral CC with magnification and LM with magnification view(s) were taken. Prior study comparison: April 06, 2021, bilateral MG 3d screening mammo w/cad. March 15, 2020, bilateral MG 3d screening mammo w/cad. The breast tissue is heterogeneously dense. This may lower the sensitivity of mammography. Finding: There are typically benign grouped/clustered calcifications in both breasts, surrounded by biopsy clips in the right breast. Several smaller groups in the left breast. These results were verbally communicated with the patient and result sheet given to the patient on 04/14/21. ASSESSMENT: Benign, BI-RAD 2 RECOMMENDATION: Follow-up diagnostic mammogram of both breasts in 1 year.
== END | disposition home or self-care (01) ==
LOC: RADMAMWWP 07:00
PROVIDERS: ATTEND Obstetrics & Gynecology Obstetrics
DX: R92.8 Other abnormal and inconclusive findings on diagnostic imaging of breast (principal)
CPT/HCPCS: 77062; 77066

== ENCOUNTER → 2021-06-08 | Outpatient (CLI) | payer BC ==
--- NOTE | 2021-06-08 11:44 | BD ---
EXAMINATION TYPE: Axial Bone Density DATE OF EXAM: 06/08/2021 COMPARISON: NONE CLINICAL HISTORY: Height: 60 Weight: 147.5 FRAX RISK QUESTIONS: Alcohol (3 or more units per day): no Family History (Parent hip fracture): no Glucocorticoids (More than 3mos): no (Ex: prednisone, prednisolone, methylprednisolone, dexamethasone, and hydrocortisone). History of Fracture in Adulthood: no Secondary Osteoporosis: 1. Type 1 Diabetes: no 2. Hyperthyroidism: no 3. Menopause before 45: no 4. Malnutrition: no 5. Chronic liver disease: no Rheumatoid Arthritis: no Current Tobacco Use: no RISK FACTORS HISTORY OF: Surgery to Spine/Hip(right/left)/Wrist (right/left): no Family History of Osteoporosis: no Active: yes Diet low in dairy products/other sources of calcium: no Postmenopausal woman: yes Lost more than 2 inches in height since high school: no MEDICATIONS: cholesterol meds Thyroid Medications: levothyroxine How Lon years Additional History: EXAM MEASUREMENTS: Bone mineral densitometry was performed using the [employer] System. Bone mineral density as measured about the Lumbar spine is: ----- L1-L4(G/cm2): 1.428 T Score Values are as follows: ----- L2: 2.1 ----- L3: 2.3 ----- L4: 1.6 ----- L1-L4: 2.1 Bone mineral density : baseline Bone mineral density about the R hip (g/cm2): 1.221 Bone mineral density about the L hip (g/cm2): 1.204 T Score values are as follows: -----R Neck: 1.3 -----L Neck: 1.2 -----R Total: 2.0 -----L Total: 2.1 Bone mineral density : baseline IMPRESSION: No evidence for osteoporosis or osteopenia at this time. NOTE: T-SCORE=SD OF THE YOUNG ADULT MEAN.
== END | disposition home or self-care (01) ==
LOC: RADBDWWP 08:01
PROVIDERS: ATTEND Internal Medicine
DX: M81.0 Age-related osteoporosis without current pathological fracture (principal)
CPT/HCPCS: 77080

== ENCOUNTER 2021-08-10 10:12 | Emergency (ER) | payer BC ==
[2021-08-10 10:18] VITALS: RESP 18
--- NOTE | 2021-08-10 11:05 | XR ---
EXAMINATION TYPE: XR chest 2V DATE OF EXAM: 08/10/2021 COMPARISON: 01/26/2020 INDICATION: Short of breath and cough TECHNIQUE: Frontal and lateral views of the chest are obtained. FINDINGS: The heart size is normal. The pulmonary vasculature is normal. The lungs are clear. IMPRESSION: 1. No acute pulmonary process radiographically apparent.
--- NOTE | 2021-08-10 11:19 | ED ---
General Adult HPI - General Chief complaint: Shortness of Breath Stated complaint: SOB Time Seen by Provider: 08/10/21 11:04 Source: patient, RN notes reviewed, old records reviewed Mode of arrival: ambulatory Limitations: no limitations - History of Present Illness Initial comments: 50-year-old female who tested positive for coronavirus 3 days ago presenting with complaints of shortness of breath and cough. Patient states she is fully vaccinated and has had coronavirus 2 times previously. She is presenting with request for antibiotic infusion. Patient did have some mild upset stomach. No significant vomiting. - Related Data Home Medications Medication Instructions Recorded Confirmed Levothyroxine Sodium [Synthroid] 75 mcg PO QAM 11/23/17 05/26/18 Simvastatin [Zocor] 10 mg PO HS 11/23/17 05/26/18 Sulfamethox-Tmp 800-160Mg [Bactrim 1 tab PO Q12HR 05/26/18 05/26/18 DS 800-160 mg] Allergies Allergy/AdvReac Type Severity Reaction Status Date / Time clarithromycin [From Biaxin] Allergy Rash/Hives Verified 08/10/21 10:18 amoxicillin [Amoxicillin] AdvReac Nausea & Verified 08/10/21 10:18 Vomiting Review of Systems ROS Statement: Those systems with pertinent positive or pertinent negative responses have been documented in the HPI. ROS Other: All systems not noted in ROS Statement are negative. Past Medical History Past Medical History: Hyperlipidemia, Pneumonia, Thyroid Disorder Additional Past Medical History / Comment(s): Recent diagnosis of uterine fibriods and a right breast lump. History of Any Multi-Drug Resistant Organisms: None Reported Past Surgical History: Breast Surgery, Section, Hysterectomy, Uterine Ablation Additional Past Surgical History / Comment(s): Section X3. BREAST BX Past Anesthesia/Blood Transfusion Reactions: No Reported Reaction Past Psychological History: No Psychological Hx Reported Smoking Status: Never smoker Past Alcohol Use History: Occasional Past Drug Use History: None Reported - Past Family History Mother Additional Family Medical History / Comment(s): Hydatidiform mole. Father Family Medical History: Myocardial Infarction ([place]) Additional Family Medical History / Comment(s): Triple bypass at 48 yrs old. General Exam Limitations: no limitations General appearance: alert, in no apparent distress Head exam: Present: atraumatic, normocephalic Eye exam: Present: normal appearance, PERRL ENT exam: Present: normal exam Neck exam: Present: normal inspection. Absent: tenderness, meningismus Respiratory exam: Present: normal lung sounds bilaterally. Absent: respiratory distress, wheezes Cardiovascular Exam: Present: regular rate, normal rhythm GI/Abdominal exam: Present: soft. Absent: distended, tenderness, guarding Neurological exam: Present: alert, oriented X3, CN II-XII intact. Absent: motor sensory deficit Psychiatric exam: Present: normal affect, normal mood Skin exam: Present: warm, dry, intact. Absent: cyanosis, diaphoretic Course Vital Signs 08/10/21 10:13 Temperature 99.1 F Pulse Rate 98 Respiratory 18 Rate Blood Pressure 134/85 O2 Sat by Pulse 98 Oximetry Medical Decision Making - Medical Decision Making 50-year-old female with outpatient test for coronavirus over the past 4 days. Patient well-appearing she is in no respiratory distress. Her oxygenation is 98% on room air. Chest x-ray is clear. She does meet criteria for monoclonal antibody infusion and is transfused in the emergency department. Strict return parameters discussed will follow with primary care physician. Disposition Clinical Impression: COVID-19 Disposition: HOME SELF-CARE Condition: Good Instructions (If sedation given, give patient instructions): COVID-19 (Sri navirus Disease 2019) (ED) Is patient prescribed a controlled substance at d/c from ED?: No Referrals: Nishi Jorge MD [Primary Care Provider] - 1-2 days Time of Disposition: 11:55
[2021-08-10] MEDS ORDERED: BEBTELOVIMAB (EUA) 175 MG/2 ML VIAL IV ONE (11:30)
[2021-08-10 15:14] VITALS: BP 117/78; PULSE 78; TEMP 98.2
== END 2021-08-10 15:11 | disposition home or self-care (01) ==
LOC: EC 10:12
DX: U07.1 COVID-19 (principal); E07.9 Disorder of thyroid, unspecified; Z82.49 Family history of ischemic heart disease and other diseases of the circulatory system; Z79.899 Other long term (current) drug therapy; Z88.1 Allergy status to other antibiotic agents; Z88.0 Allergy status to penicillin
CPT/HCPCS: 87635; 71046; 99285; Q0222

== ENCOUNTER → 2022-04-18 | Outpatient (CLI) | payer BC ==
--- NOTE | 2022-04-18 08:11 | MM ---
Reason for Exam: Additional evaluation requested from prior study. Last screening mammogram was performed 12 month(s) ago. Patient History: Menarche at age 12. First Full-Term at age 25. Hysterectomy at age 47. Patient has history of breast feeding. Currently using Progesterone, starting at age 49. Currently using Estrogen and Progesterone, starting at age 49. 01/25/2018, Benign Core Biopsy on the right side. 01/06/2011, Benign Core Biopsy on the right side. 01/06/2011, Benign Core Biopsy on the right side. Risk Values: Liliane 5 year model risk: 1.8%. NCI Lifetime model risk: 14.0%. Prior Study Comparison: 12/19/2016 Bilateral Screening Mammogram, [facility]. 12/25/2016 Right Diagnostic Mammogram, [facility]. 07/11/2017 Screening Mammogram, [facility]. 01/10/2018 Bilateral Diagnostic Mammogram, [facility]. 08/15/2018 Right Diagnostic Mammogram, [facility]. 03/13/2019 Bilateral Diagnostic Mammogram, [facility]. 03/15/2020 Bilateral Screening Mammogram, [facility]. 04/06/2021 Bilateral Screening Mammogram, [facility]. 04/14/2021 Bilateral Diagnostic Mammogram, [facility]. Tissue Density: The breast tissue is heterogeneously dense. This may lower the sensitivity of mammography. Findings: Analyzed By CAD. Similar scattered calcifications that are round appearing within the left breast. No new suspicious mass within either breast. Stable to possibly a few increased punctate calcifications within the right breast in a loosely grouped configuration. This is at site of 3 stereotactic biopsy clips. Overall Assessment: Probably benign, BI-RAD 3 Management: Diagnostic Mammogram of the right breast in 6 months. A clinical breast exam by your physician is recommended on an annual basis and results should be correlated with mammographic findings. This exam should not preclude additional follow-up of suspicious palpable abnormalities. Results were given to the patient verbally at the time of exam. Electronically signed and approved by: Rufino Andrade D.O.
== END | disposition home or self-care (01) ==
LOC: RADMAMWWP 07:39
PROVIDERS: ATTEND Obstetrics & Gynecology Obstetrics
DX: R92.8 Other abnormal and inconclusive findings on diagnostic imaging of breast (principal)
CPT/HCPCS: 77062; 77066

== ENCOUNTER → 2022-12-01 | Outpatient (CLI) | payer BC ==
--- NOTE | 2022-12-01 08:58 | MM ---
Reason for Exam: Follow-up at short interval from prior study. Last screening mammogram was performed 8 month(s) ago. Patient History: Menarche at age 12. First Full-Term at age 25. Hysterectomy at age 47. Patient has history of breast feeding. Currently using Progesterone, starting at age 49. Currently using Estrogen and Progesterone, starting at age 49. 01/25/2018, Benign Core Biopsy on the right side. 01/06/2011, Benign Core Biopsy on the right side. 01/06/2011, Benign Core Biopsy on the right side. Risk Values: Liliane 5 year model risk: 1.8%. NCI Lifetime model risk: 13.8%. Prior Study Comparison: 04/06/2021 Bilateral Screening Mammogram, [facility]. 04/14/2021 Bilateral Diagnostic Mammogram, [facility]. 04/18/2022 Bilateral MG 3D diag mammo w/cad ZOILA, [facility]. Tissue Density: Right: The breast tissue is heterogeneously dense. This may lower the sensitivity of mammography. Findings: Analyzed By CAD. Stable coarse loosely grouped calcifications within the right breast. 3 biopsy clips redemonstrated within the right breast. No new suspicious mass or group of calcifications. Overall Assessment: Probably benign, BI-RAD 3 Management: Diagnostic Mammogram of both breasts in 6 months. A clinical breast exam by your physician is recommended on an annual basis and results should be correlated with mammographic findings. This exam should not preclude additional follow-up of suspicious palpable abnormalities. Results were given to the patient verbally at the time of exam. Note on Liliane scores and lifetime risk: 1. A Liliane score greater than 3% is considered moderate risk. If this is the case, consider specialist referral to assess eligibility for a risk reducing agent. If overall lifetime risk for the development of breast cancer is 20% or higher, the patient may qualify for future screening with alternating mammogram and breast MRI. Electronically signed and approved by: Rufino Andrade D.O.
== END | disposition home or self-care (01) ==
LOC: RADMAMWWP 08:14
PROVIDERS: ATTEND Obstetrics & Gynecology Obstetrics
DX: R92.1 Mammographic calcification found on diagnostic imaging of breast (principal)
CPT/HCPCS: 77061; 77065

== ENCOUNTER 2023-04-03 10:44 | Day surgery (SDC) | payer BC ==
[~2023-04-03 10:44] MED LIST changes: -DEXAMETHASONE SOD PHOSPHATE 10 MG/ML 1 ML VIAL IV ONE; -HYDROmorphone 0.5 MG/0.5 ML SYRINGE IVP PRN; +LACTATED RINGERS 1,000 ML IV SCH; -MIDAZOLAM 2 MG/2 ML VIAL IV PRN; -SCOPOLAMINE 1.5MG/72HR PATCH TRANSDERM ONE
[2023-04-03 11:52] VITALS: RESP 16; TEMP 97.2
[2023-04-03] MEDS ORDERED: PROPOFOL 10 MG/ML 20 ML VIAL IV ONE (12:12)
--- NOTE | 2023-04-03 12:24 | P.PCN ---
Date of Procedure: 04/03/23 Procedure(s) Performed: BRIEF HISTORY: Patient is a 52-year-old pleasant female scheduled for an elective colonoscopy as a part of evaluation of prior history of colon polyps. PROCEDURE PERFORMED: Colonoscopy with biopsy. PREOPERATIVE DIAGNOSIS: History of colon polyps. IV sedation per Anesthesia. PROCEDURE: After informed consent was obtained, the patient, was brought into the endoscopy unit. IV sedation was administered by Anesthesia under continuous monitoring. Digital rectal examination was normal. Initially the Olympus CF-160 flexible video colonoscope was then inserted in the rectum, gradually advanced into the cecum without any difficulty. Careful examination was performed as the scope was gradually being withdrawn. Ileocecal valve and the appendiceal orifice were visualized and appeared normal. Prep was excellent. Mucosa of the cecum, 3 mm polyp that was removed by cold biopsy. Rest of the ascending colon, transverse colon, descending colon, sigmoid colon, and rectum appeared normal. Retroflexion was performed in the rectum and no lesions were seen. The patient tolerated the procedure well. IMPRESSION: 3 mm cecal polyp status post cold biopsy Rest of the colon appeared normal RECOMMENDATIONS: Findings of this examination were discussed with the patient as well as his family.. was advised to follow with the biopsy results and have a repeat colonoscopy in 5-10 years based the biopsy results
[2023-04-03 13:03] VITALS: BP 118/78; PULSE 58
== END 2023-04-03 13:13 | disposition home or self-care (01) ==
LOC: ORWHC2ENDO 10:44
PROVIDERS: ATTEND Internal Medicine Gastroenterology
DX: Z12.11 Encounter for screening for malignant neoplasm of colon (principal); K63.5 Polyp of colon; E78.5 Hyperlipidemia, unspecified; E03.9 Hypothyroidism, unspecified; Z79.82 Long term (current) use of aspirin; Z98.891 History of uterine scar from previous surgery; Z98.890 Other specified postprocedural states; Z79.890 Hormone replacement therapy; Z79.899 Other long term (current) drug therapy; Z86.010 Personal history of colon polyps
CPT/HCPCS: 88305; 45380; J2704

== ENCOUNTER → 2023-04-19 | Outpatient (CLI) | payer BC ==
--- NOTE | 2023-04-19 12:45 | CA ---
Exercise Nuclear Stress Test Report Name: Elisa Gómez Exam Date: 04/19/2023 09:31 Exam Location: [place] Stress Ht (in): 60 Wt (lb): 136 BSA: 1.58 Ordering Phys: Nishi Jorge MD Referring Phys: Nishi Jorge MD Technologist: Art Murcia Age: 52 Gender: F : 1970 Procedure CPT: Indications: I20.89 OTHER FORMS OF ANGINA PECTORIS ICD-10 Codes: Patient History: Chest pain Medications: Meds past 24 hrs: Pretest Chest Pain: STRESS TEST Rafiq Protocol Exercise Duration (min:sec): 10:[address] Depressions (mm): 0 Angina Score: 0 Ivory Score: 10 Resting HR (bpm): 64 Peak HR (bpm): 167 Resting BP (mmHg): 128 / 76 Peak BP (mmHg): 191 / 85 MPHR: 167 Target HR: 142 % MPHR: 100 METS: 12.1 Total Dose: Peak Dose: Atropine: Double Product: 69803 BP Response: Stress Termination: Reached target heart rate Stress Symptoms: No chest pain or symptoms Stress Summary: The patient's target heart rate was achieved, The hemodynamic response to exercise was normal ECG ANALYSIS Resting ECG: Sinus rhythm. Normal conduction. No arrhythmias. Normal repolarization. Stress ECG: No ECG evidence of ischemia with exercise. CONCLUSIONS Patient falls into low-risk group (DTS >= +5). This associates the patient with an annual CV mortality <= 0.5%. 1. Good exercise tolerance with normal electrocardiographic response to exercise 2. Nuclear images will be reported separately Dr. Iza Shelton MD (Electronically Signed) Final Date: 19 April 2023 12:44
--- NOTE | 2023-04-19 20:42 | NM ---
EXAMINATION TYPE: NM stress cardiolite complete DATE OF EXAM: 04/19/2023 COMPARISON: 06/03/2018 CLINICAL INDICATION: Female, 52 years old with history of I20.89 OTHER FORMS OF ANGINA PECTORIS; TECHNIQUE: After the intravenous administration of 9.67 mCi Tc 99m Sestamibi - Rest images obtained 46 minutes post injection. The patient exercised using a ROSALIA protocol and 1 minute prior to peak exercise was injected with 25.8 mCi Tc 99m Sestamibi - Stress images obtained 5 minutes post injectio n. FINDINGS: Targeted heart rate (142 BPM) was achieved during performance of the study (heart rate achieved 167 B PM). Review of stress and rest SPECT images demonstrates fixed perfusion abnormality along the anteri or and anteroseptal wall. However, there is no correlate on the polar maps. Findings suggest attenuat ion artifact. No distinct reversibility is seen. Gated analysis shows normal wall motion with an est imated left ventricular ejection fraction of 66 %. TID is calculated as 0.77 IMPRESSION: Fixed defect anterior and anteroseptal wall has no correlate on the polar maps suggesting attenuation artifact. No definite reversibility is identified.
== END | disposition home or self-care (01) ==
LOC: RADNMMAIN 08:04
PROVIDERS: ATTEND Internal Medicine
DX: I20.89 Other forms of angina pectoris (principal); R07.9 Chest pain, unspecified
CPT/HCPCS: 93017; 78452; A9500

== ENCOUNTER → 2024-01-23 | Outpatient (CLI) | payer BC ==
--- NOTE | 2024-01-23 07:43 | MM ---
Reason for Exam: Additional evaluation requested from prior study. Last mammogram was performed 1 year(s) and 9 month(s) ago. Patient History: Menarche at age 12. First Full-Term at age 25. Left ovary removed at age 47. Hysterectomy at age 47. Postmenopausal. Patient has history of breast feeding. Currently using Progesterone, starting at age 49. Currently using Estrogen and Progesterone, starting at age 49. 01/25/2018, Benign Core Biopsy on the right side. 01/06/2011, Benign Core Biopsy on the right side. 01/06/2011, Benign Core Biopsy on the right side. Risk Values: Liliane 5 year model risk: 1.9%. NCI Lifetime model risk: 13.6%. Prior Study Comparison: 07/11/2017 Screening Mammogram, [facility]. 01/10/2018 Bilateral Diagnostic Mammogram, [facility]. 08/15/2018 Right Diagnostic Mammogram, [facility]. 03/13/2019 Bilateral Diagnostic Mammogram, [facility]. 03/15/2020 Bilateral Screening Mammogram, [facility]. 04/06/2021 Bilateral Screening Mammogram, [facility]. 04/14/2021 Bilateral Diagnostic Mammogram, [facility]. 04/18/2022 Bilateral MG 3D diag mammo w/cad ZOILA, [facility]. 12/01/2022 Right MG 3D diag mammo w/cad RT, [facility]. Tissue Density: The breasts are heterogeneously dense, which may obscure small masses. Findings: Analyzed By CAD. The pattern is symmetrical. Multiple core markers are within the right breast. Bilateral scattered subsegmental punctate calcifications are present. These appear stable from comparison. No suspicious groups of microcalcifications, spiculated or lobular masses, architectural distortion or other secondary signs of malignancy are mammographically apparent. Overall Assessment: Benign, BI-RAD 2 Management: Screening Mammogram of both breasts in 1 year. A negative mammogram report should not preclude additional follow up of suspicious palpable abnormalities. Patient should continue monthly self breast exam. A clinical breast exam by your physician is recommended on an annual basis and results should be correlated with mammographic findings. Note on Liliane scores and lifetime risk: 1. A Liliane score greater than 3% is considered moderate risk. If this is the case, consider specialist referral to assess eligibility for a risk reducing agent. 2. If overall lifetime risk for the development of breast cancer is 20% or higher, the patient may qualify for future screening with alternating mammogram and breast MRI. [facility], , 01/23/2024 7:40 AM. Electronically signed and approved by: Balta Pagan D.O. Radiologis
== END | disposition home or self-care (01) ==
LOC: RADMAMWWP 06:56
PROVIDERS: ATTEND Obstetrics & Gynecology Obstetrics
DX: R92.8 Other abnormal and inconclusive findings on diagnostic imaging of breast
CPT/HCPCS: 77062; 77066

== ENCOUNTER → 2024-04-09 | Outpatient (CLI) | payer BC ==
--- NOTE | 2024-04-09 16:08 | XR ---
EXAMINATION TYPE: XR KUB DATE OF EXAM: 04/09/2024 9:12 AM COMPARISON: None. CLINICAL INDICATION: Female, 53 years old with history of R31.9 HEMATURIA, microscopic hematuria TECHNIQUE: XR KUB view(s) obtained. FINDINGS: There is a normal bowel gas pattern. Psoas margins are normal. No organomegaly is present. No suspicious calcifications. IMPRESSION: 1. Unremarkable Abdomen [facility], , 04/09/2024 4:06 PM
== END | disposition home or self-care (01) ==
LOC: RADXRMAIN 08:58
PROVIDERS: ATTEND Internal Medicine
DX: R31.9 Hematuria, unspecified (principal)
CPT/HCPCS: 74018

== ENCOUNTER → 2024-05-05 | Outpatient (CLI) | payer BC ==
--- NOTE | 2024-05-05 08:25 | US ---
EXAMINATION TYPE: US carotid duplex BILAT DATE OF EXAM: 05/05/2024 COMPARISON: NONE CLINICAL INDICATION: Female, 53 years old with history of I65.23 CAROTID STENOSIS; Stenosis Additional History: .... TECHNIQUE: Grayscale, color Doppler and spectral Doppler evaluation of the bilateral carotid systems and vertebral arteries. Indirect Doppler criteria was utilized. FINDINGS: EXAM MEASUREMENTS: RIGHT: Peak Systolic Velocity (PSV) cm/sec ----- Right CCA: 84.2 ----- Right ICA: 86.4 ----- Right ECA: 78.7 ICA/CCA ratio: 1.0 RIGHT: End Diastole cm/sec ----- Right CCA: 27.0 ----- Right ICA: 27.0 ----- Right ECA: 17.1 LEFT: Peak Systolic Velocity (PSV) cm/sec ----- Left CCA: 73.2 ----- Left ICA: 78.7 ----- Left ECA: 72.1 ICA/CCA ratio: 1.1 LEFT: End Diastole cm/sec ----- Left CCA: 27.0 ----- Left ICA: 33.6 ----- Left ECA: 14.9 VERTEBRALS (direction of flow): Right Vertebral: Antegrade Left Vertebral: Antegrade Rhythm: Normal PHILANTHROPY OFFICER NOTES: No significant stenosis seen Color Doppler imaging shows patency with blood flow throughout the carotid artery. Spectral waveforms are within normal limits. IMPRESSION: Right: No hemodynamically significant stenosis. Left: No hemodynamically significant stenosis. Criteria for Assigning % of Stenosis / Diameter reduction (Estimation based on the indirect measurements of the internal carotid artery velocities (ICA PSV). 1. Normal (no stenosis)=ICA PSV < 125 cm/s: ratio < 2.0: ICA EDV<40 cm/s. 2. Less than 50% stenosis=ICA PSV < 125 cm/s: ratio < 2.0: ICA EDV<40 cm/s. 3. 50 to 69% stenosis=ICA PSV of 125 to 230 cm/s: ration 2.0 ? 4.0: ICA EDV 40-100 cm/s. 4. Greater than 70% stenosis to near occlusion= ICA PSV > 230 cm/s: ratio > 4.0: ICA EDV > 100 cm/s. 5. Near occlusion= ICA PSV velocities may be low or undetectable: variable ratio and ICA EDV. 6. Total occlusion=unable to detect flow. [facility], , 05/05/2024 8:23 AM
== END | disposition home or self-care (01) ==
LOC: RADUSWWP 07:14
PROVIDERS: ATTEND Internal Medicine
DX: I65.23 Occlusion and stenosis of bilateral carotid arteries (principal)
CPT/HCPCS: 93880

== ENCOUNTER → 2024-06-18 | Outpatient (CLI) | payer BC | END | disposition home or self-care (01) | LOC: RADECHMAIN 09:40 | PROVIDERS: ATTEND Internal Medicine | DX: Z53.9 Procedure and treatment not carried out, unspecified reason (principal) ==